=== PATIENT | female | born 1940 | race Caucasian/White ===

== ENCOUNTER 2017-12-12 10:44 | Emergency (ER) | payer OTHER, MEDICARE ==
[~2017-12-12] VITALS: Ht 154.9 cm; Wt 69.2 kg
[2017-12-12 10:49] VITALS: TEMP 36.7; Ht 154.9 cm; Wt 69.2 kg
[2017-12-12] MEDS ORDERED: LIDOCAINE 1% BUFFERED INJ 20 ML VIAL INFIL ONE (11:15)
--- NOTE | 2017-12-12 11:41 | EMERGENCY ROOM VISIT NOTE ---
History First contact with patient: 10:57 Chief Complaint: LACERATION/CUT (SUT/DERMABOND) Stated Complaint: LEFT MIDDLE FINGER CUT Nursing Triage Summary: triage note: pt reports she cut her left third and fourth fingers while cutting chicken breasts at approx 0500 today. History of Present Illness The patient is a 77 year old female who presents to the Emergency Room with complaints of a laceration to her left third and fourth fingertips while cutting chicken breast at approximately 5 AM this morning. The patient reports notable bleeding from the middle finger, and presents for further wound evaluation. Any significant pain. The patient is right-hand dominant. The patient is uncertain of her last tetanus immune is a chin. Review of Systems 6 system review was performed and was negative except for pertinent positives and negatives as indicated in history of present illness Past Medical/Surgical History Medical Problems: (1) Asthma (2) Hypercholesterolemia (3) Hypertension Nos (4) Kidney stones Surgical Problems: (1) History of dilatation and curettage (2) History of tubal ligation Family History FH: cancer FH: gallbladder disease FH: heart disease FH: hypertension FH: kidney disease FH: lung disease FH: multiple sclerosis FH: seizures Social History Smoking Status: Never Smoker Alcohol Use: occasionally Marital Status: Occupation Status: retired Physical Exam Vital Signs Date Time Temp Pulse Resp B/P (MAP) Pulse Ox O2 Delivery O2 Flow Rate FiO2 12/12/17 10:49 36.7 68 20 168/90 95 Room Air Physical Exam CONSTITUTIONAL: Healthy and well nourished. Patient does not appear in any acute distress. HEENT: Normocephalic, atraumatic. Pupils equal, round and reactive. NECK: Full active range of motion without discomfort. MUSCULOSKELETAL: Examination of the left third fingertip shows a 1 cm laceration with mild active bleeding. Nail plate is not involved. Patient has a superficial laceration to the tip of the fourth finger as well that will not require suture repair. INTEGUMENTARY: No rash or other significant dermatologic conditions noted. NEUROLOGIC: No focal neurologic deficits noted. Left third fingertip is sensory intact. Medical Decision & Procedures Procedure Laceration repair was performed under digital block anesthesia after receiving verbal consent from the patient. Using buffered 1% lidocaine without epinephrine, good digital block anesthesia was administered. The wound was then peripherally cleansed with iodine, then irrigated with normal saline. The wound was then approximated using 5-0 nylon simple interrupted sutures 3. A bacitracin dressing was applied. The patient was administered Adacel IM. ED Course Patient history and physical exam were performed. Nurse's notes were reviewed. Vital signs were reviewed and were normal. Laceration repair was performed under digital block anesthesia. The patient was provided additional verbal and written wound care instructions. Ice and elevation for swelling. Tylenol as needed for pain. Suture removal in 12-14 days, or seek reevaluation sooner for any signs of wound infection. The patient was happy with plan of care, voiced understanding of all discharge instructions, and denied any pain at the time of discharge. Case was also discussed with Dr. Beltrán, ED attending physician. Medical Decision Medication Reconcilliation Current Medication List: was personally reviewed by me Blood Pressure Screening Patient's blood pressure: Normal blood pressure Impression Primary Impression: Laceration of left middle finger Departure Information Dispostion Home / Self-Care Forms HOME CARE DOCUMENTATION FORM, IMPORTANT VISIT INFORMATION Patient Instructions My [facility] Additional Instructions Keep wound clean and dry. Do not allow any crusting or dried blood to accumulate on sutures. If this occurs, use a 1:1 solution of hydrogen peroxide/ water on a Q-tip to clean the wound. Use an antibiotic ointment for 3-4 days, then let wound dry. Suture removal in 12-14 days. Return sooner for any signs of infection (increasing redness, swelling, drainage). Ice and elevate as needed for swelling and pain. Tylenol 1000 mg every 6 hrs if needed for additional pain relief. Problem Qualifiers Primary Impression: Laceration of left middle finger Encounter type: initial encounter Damage to nail status: without damage Foreign body presence: without foreign body Qualified Codes: S61.213A - Laceration without foreign body of left middle finger without damage to nail, initial encounter
[2017-12-12] MEDS ORDERED: DIPHTHERIA/TETANUS/PERTUSSIS 0.5 ML SYR/VIAL IM. ONE (11:45)
[2017-12-12 11:55] VITALS: BP 152/82; PULSE 62; O2SAT 97
== END 2017-12-12 11:55 | disposition home or self-care (01) ==
LOC: C.EDB 10:45 → C.EDD 11:55
DX: S61.213A Laceration without foreign body of left middle finger without damage to nail, initial encounter (principal); S60.945A Unspecified superficial injury of left ring finger, initial encounter; Z23 Encounter for immunization; W45.8XXA Other foreign body or object entering through skin, initial encounter; Y93.G1 Activity, food preparation and clean up

== ENCOUNTER 2022-03-23 17:57 | Inpatient (IN) ==
[2022-03-23] MEDS ORDERED: ONDANSETRON INJ 2 MG/ML 2 ML VIAL IV STA (18:43)
[2022-03-23] MEDS ORDERED: SODIUM CHLORIDE 0.9% 1000ML 1,000 ML IV SCH (18:45)
--- NOTE | 2022-03-23 19:11 | Emergency Department Note ---
Impression & Plan Pancreatitis, Nausea & vomiting, Transaminitis ED Provider Note NAME: JERONIMO SAPP AGE: 81 SEX: F : 1940 ARRIVES VIA: Walk-In INFORMANT: Patient, ED PROVIDER(S): Memo Siu MD Chief Complaint: Vomiting HPI: Patient presents primarily due to concern for nausea and vomiting which began earlier this morning. The patient states that she feels that she is can get better and then tries to eat or drink something and then she has an episode of vomiting. No blood in the vomit. Patient denies any chest pains but may feel little bit short of breath but thinks that this is related to her abdominal discomfort. Patient does have a history of allergies and thinks it may be related. Patient denies any leg swelling or calf pain. The patient does complain of mild diffuse abdominal discomfort but no pain. No falls or trauma. The patient did have a bowel movement the last 24 hours. No blood in urine or stool. No dysuria. Patient did take some Tylenol earlier today. This mildly improved some of her symptoms. The patient denies any upper respiratory symptoms cough or fever. Patient denies any known sick contacts or recent travel. ROS: See HPI for pertinent positives and negatives. A total of 10 systems were reviewed and otherwise negative. Past medical history: See below Surgical history: See below Social history: See below Physical Exam: GENERAL: NAD, wearing a mask, non-toxic. EYE EXAM: Normal conjunctiva. PERRL, no anisocoria and EOM's grossly intact w/o pain. NECK: Supple, no nuchal rigidity, no adenopathy, non-tender. No signs of meningismus. FROM of the neck with good chin to chest and neck extension. No stridor. LUNGS: Clear to auscultation. Normal chest wall mechanics. HEART: NSR, no MRG. ABDOMEN: Abdomen soft, mild epigastric and left upper quadrant discomfort, no lower abdominal pain, normo-active bowel sounds, no masses, no rebound or guarding. BACK: No CVA TTP. SKIN: No rashes and no bruising. UPPER EXTREMITIES: Upper extremities are grossly normal. LOWER EXTREMITIES: Grossly normal, no edema. NEURO EXAM: A&O x3, cranial nerves II-XII grossly intact, normal speech, moves all 4 extremities. Differential diagnoses: Gastroenteritis, food borne illness, infections, appendicitis, diverticulitis, inflammatory bowel disease, obstruction, GI bleed, biliary pathology, volvulus, as well as other pathologies. Course: Patient was seen and evaluated the bedside. Full history physical exam was performed. EKG interpreted by me Normal sinus rhythm, rate of 71, normal axis, no ST elevations. No prior EKGs for comparison. Being machine read as accelerated junctional rhythm but believe the patient does have P waves seen in her anterior and lateral leads. Imaging Studies: See Below Cardiac monitoring: An order was placed for continuous cardiac monitoring. The monitor shows a rate of 77 with sinus rhythm. MDM: Patient presents due to concern for nausea vomiting and mild diffuse abdominal discomfort. Blood work is obtained along with an EKG troponin and the patient was ordered IV fluids and antiemetics The patient does not have any further nausea or vomiting and states that she feels quite well. The patient's blood work shows A white count of 12 with a normal H&H and platelet count. The patient's kidney function is unremarkable. The patient's LFTs did show concern for transaminitis and associated pancreatitis. The patient has no right upper quadrant pain. I did order a CT of the abdomen pelvis and discuss given her lab abnormalities and associated pancreatitis with the nausea and vomiting the patient would benefit from admi ssion. I did speak the on-call hospitalist Dr. Gonzales who and the patient was admitted to the medicine service pending CAT scan of the abdomen and pelvis. Patient has had no further vomiting since treatment and has no right upper quadrant pain at this time. Past Med/Surg History Medical History Acute acalculous cholecystitis Surgical History History of dilatation and curettage History of tubal ligation Social History Smoking Status: Never smoker Hx Alcohol Use: No Hx Substance Use: No Preferred Language: Welsh Communication Ability: Effective [employer] Marketing Analyst Required: No Beliefs That Will Affect Care: None marital status: / Current Living Situation: Alone Other Information That Helps Us Care for You: No Feels Safe at Home: Yes Safety Concerns: Feels Safe At This Time Assistive Devices: None Assistive Devices Comment: reading glasses Allergies Allergies Allergy/AdvReac Type Severity Reaction Status Date / Time adhesive Allergy Intermediate RASH Verified 03/23/22 19:35 alendronate sodium AdvReac Intermediate UPSET Verified 03/23/22 19:35 STOMACH AND JAW PAIN Home Meds Home Medications Medication Instructions Recorded Confirmed albuterol sulfate 90 mcg/actuation 2 puff inhalation DIRECTED PRN 03/23/22 03/23/22 aerosol inhaler Shortness Of Breath Or Wheezing aspirin 81 mg tablet,delayed 81 mg PO DAILY 03/23/22 03/23/22 release biotin 10,000 mcg capsule 10,000 mcg PO DAILY 03/23/22 03/23/22 euyqozk-xhtzkweau-fqya 333 mg-133 1 tab PO DAILY 03/23/22 03/23/22 mg-5 mg tablet cholecalciferol (vitamin D3) 25 25 mcg PO DAILY 03/23/22 03/23/22 mcg (1,000 unit) capsule (Vitamin D3) dextromethorphan-guaifenesin 30 1 tab PO Q12H 03/23/22 03/23/22 mg-600 mg tablet extended hr (Mucinex DM) glucosamine 125 mg-chondroitn 100 1 tab PO BID 03/23/22 03/23/22 mg-cartilg 40 mg-colagn 10 mg tablet hydrochlorothiazide 12.5 mg capsule 12.5 mg PO QAM 03/23/22 03/23/22 levothyroxine 125 mcg tablet 125 mcg PO QAM 03/23/22 03/23/22 lisinopril 10 mg tablet 10 mg PO HS 03/23/22 03/23/22 melatonin 10 mg tablet 20 mg PO HS PRN Sleep 03/23/22 03/23/22 montelukast 10 mg tablet 10 mg PO DAILY 03/23/22 03/23/22 multivit,mins no.24-iron ps 1 tab PO DAILY 03/23/22 03/23/22 complex 60 mg iron-folic acid 1 mg tablet omeprazole 20 mg capsule,delayed 20 mg PO QAM 03/23/22 03/23/22 release psyllium seed (sugar) oral powder 1 tsp PO DAILY 03/23/22 03/23/22 (Metamucil (sugar) oral powder) simvastatin 40 mg tablet 40 mg PO HS 03/23/22 03/23/22 Results & Data (ED) Vital Signs Vital Signs - 24 hr 03/23/22 18:07 03/23/22 18:47 03/23/22 19:57 Temperature 36.8 C Temperature Source Temporal Artery Scan Pulse Rate 79 70 Pulse Rate [Left Finger] 79 Pulse Rate from SpO2 Sensor Pulse Rhythm Regular Pulse Rhythm [Left Finger] Regular Pulse Strength [Left Finger] Normal Respiratory Rate 18 20 20 Respiratory Effort / Characteristics Non-Labored Respiratory Depth Normal Respiratory Pattern Regular Blood Pressure 111/62 Blood Pressure [Left Arm] 138/77 Blood Pressure Mean 78 Blood Pressure Mean [Left Arm] 97 Blood Pressure Position [Left Arm] Lying Pulse Oximetry 96 96 94 Oxygen Delivery Method Room Air Room Air Room Air Sepsis Recent Fever Within 48 Hours No Sepsis New/Unexplained Change in Mental Status No Sepsis Action Taken by Nursing No Action Required 03/23/22 18:37 03/23/22 19:00 03/23/22 19:00 Temperature Temperature Source Pulse Rate 70 73 Pulse Rate [Left Finger] Pulse Rate from SpO2 Sensor 70 71 Pulse Rhythm Pulse Rhythm [Left Finger] Pulse Strength [Left Finger] Respiratory Rate 24 23 Respiratory Effort / Characteristics Respiratory Depth Respiratory Pattern Blood Pressure 124/73 Blood Pressure [Left Arm] Blood Pressure Mean 90 Blood Pressure Mean [Left Arm] Blood Pressure Position [Left Arm] Pulse Oximetry 95 95 Oxygen Delivery Method Sepsis Recent Fever Within 48 Hours Sepsis New/Unexplained Change in Mental Status Sepsis Action Taken by Nursing 03/23/22 19:30 03/23/22 19:30 03/23/22 20:00 Temperature Temperature Source Pulse Rate 80 Pulse Rate [Left Finger] Pulse Rate from SpO2 Sensor 80 Pulse Rhythm Pulse Rhythm [Left Finger] Pulse Strength [Left Finger] Respiratory Rate 19 Respiratory Effort / Characteristics Respiratory Depth Respiratory Pattern Blood Pressure 141/59 H 160/80 H Blood Pressure [Left Arm] Blood Pressure Mean 86 106 Blood Pressure Mean [Left Arm] Blood Pressure Position [Left Arm] Pulse Oximetry 98 Oxygen Delivery Method Sepsis Recent Fever Within 48 Hours Sepsis New/Unexplained Change in Mental Status Sepsis Action Taken by Nursing 03/23/22 20:00 03/23/22 20:42 03/23/22 20:42 Temperature Temperature Source Pulse Rate 81 79 Pulse Rate [Left Finger] Pulse Rate from SpO2 Sensor 79 Pulse Rhythm Pulse Rhythm [Left Finger] Pulse Strength [Left Finger] Respiratory Rate 24 34 H Respiratory Effort / Characteristics Respiratory Depth Respiratory Pattern Blood Pressure 146/68 H Blood Pressure [Left Arm] Blood Pressure Mean 94 Blood Pressure Mean [Left Arm] Blood Pressure Position [Left Arm] Pulse Oximetry 98 Oxygen Delivery Method Sepsis Recent Fever Within 48 Hours Sepsis New/Unexplained Change in Mental Status Sepsis Action Taken by Nursing 03/23/22 21:00 03/23/22 21:00 03/23/22 21:30 Temperature Temperature Source Pulse Rate 77 76 Pulse Rate [Left Finger] Pulse Rate from SpO2 Sensor 75 76 Pulse Rhythm Pulse Rhythm [Left Finger] Pulse Strength [Left Finger] Respiratory Rate 24 26 H Respiratory Effort / Characteristics Respiratory Depth Respiratory Pattern Blood Pressure 138/77 Blood Pressure [Left Arm] Blood Pressure Mean 97 Blood Pressure Mean [Left Arm] Blood Pressure Position [Left Arm] Pulse Oximetry 93 97 Oxygen Delivery Method Sepsis Recent Fever Within 48 Hours Sepsis New/Unexplained Change in Mental Status Sepsis Action Taken by Nursing 03/23/22 21:31 03/23/22 21:31 Temperature Temperature Source Pulse Rate 79 Pulse Rate [Left Finger] Pulse Rate from SpO2 Sensor 81 Pulse Rhythm Pulse Rhythm [Left Finger] Pulse Strength [Left Finger] Respiratory Rate 19 Respiratory Effort / Characteristics Respiratory Depth Respiratory Pattern Blood Pressure 144/95 H Blood Pressure [Left Arm] Blood Pressure Mean 111 Blood Pressure Mean [Left Arm] Blood Pressure Position [Left Arm] Pulse Oximetry 98 Oxygen Delivery Method Sepsis Recent Fever Within 48 Hours Sepsis New/Unexplained Change in Mental Status Sepsis Action Taken by Residential Medications Current Medication List: was personally reviewed by me Laboratory Data Attestation: I reviewed the patient's lab results. Result diagrams: 03/24/22 05:52 03/24/22 05:52 Lab Results 03/23/22 03/23/22 Range/Units 18:57 18:57 WBC 12.58 H (4.8-10.8) K/ul RBC 4.63 (3.93-5.22) M/uL Hgb 14.7 (12.0-16.0) g/dl Hct 43.1 (34.1-44.9) % MCV 93.1 (80.0-100.0) fL MCH 31.7 (25.0-34.0) pg MCHC 34.1 (32.0-36.0) g/dL RDW Std Deviation 42.5 (36.4-46.3) fL RDW Coeff of Mio 12.3 (11.5-14.5) % Plt Count 225 (130-400) K/uL MPV 10.3 (9.4-12.3) fL Immature Gran % (Auto) 0.4 % Neut % (Auto) 86.1 % Lymph % (Auto) 7.6 % [place] % (Auto) 5.4 % Eos % (Auto) 0.3 % Baso % (Auto) 0.2 % Neut # (Auto) 10.84 H (1.4-6.5) K/uL Lymph # (Auto) 0.95 L (1.2-3.4) K/uL [place] # (Auto) 0.68 (0.24-0.82) K/uL Eos # (Auto) 0.04 (0-0.50) K/uL Baso # (Auto) 0.02 (0-0.2) K/uL Immature Gran # (Auto) 0.05 H (0.00-0.02) K/uL Sodium 136 (136-145) mmol/L Potassium 3.6 (3.5-5.1) mmol/L Chloride 101 (98-107) mmol/L Carbon Dioxide 26 (21-32) mmol/L Anion Gap 9 (3-11) BUN 18 (6-23) mg/dl Creatinine 0.83 (0.6-1.2) mg/dl Est Cr Clr Drug Dosing 48.5 ml/min Est GFR ( Amer) 77.7 ml/min Est GFR (Non-Af Amer) 67.1 ml/min BUN/Creatinine Ratio 21.7 H (10-20) Glucose 126 H (70-99(Fasting)) mg/dl Calcium 8.9 (8.5-10.1) mg/dl Total Bilirubin 1.4 H (0.2-1.0) mg/dl AST 737 H (13-39) U/L ALT 546 H (7-52) U/L Alkaline Phosphatase 200 H (34-104) U/L Troponin I High Sens 8.5 (0-14) pg/ml Total Protein 6.9 (6.0-8.3) gm/dl Albumin 4.1 (3.4-5.0) gm/dl Globulin 2.8 (2.5-4.0) gm/dl Albumin/Globulin Ratio 1.5 (0.9-2) Lipase 8900 H (11-82) U/L Administered Medications Aspirin (Aspirin 81 Mg Ectab) 81 mg PO DAILY DESIRAE Stop: 04/23/22 08:59 Last Admin: 03/24/22 13:09 Dose: Not Given Documented By: ACP Enoxaparin Sodium (Enoxaparin Inj 40 Mg/0.4 Ml Syr) 40 mg SQ HS DESIRAE Stop: 04/22/22 23:29 Last Admin: 03/24/22 00:17 Dose: 40 mg Documented By: MEG Hydromorphone HCl (Hydromorphone Inj 0.5 Mg/0.5 Ml Syr) 0.25 - 0.5 mg IV Q4H PRN PRN Reason: Pain Stop: 04/06/22 23:02 Last Admin: 03/24/22 13:55 Dose: 0.25 mg Documented By: RISA Lactated Ringer's (Lr) 1,000 mls @ 100 mls/hr IV .Q10H DESIRAE Stop: 04/22/22 23:02 Last Admin: 03/24/22 04:37 Dose: 200 mls/hr Documented By: Infusion: 03/24/22 04:11 Dose: 200 mls/hr Documented By: Admin: 03/23/22 23:11 Dose: 200 mls/hr Documented By: MEG Piperacillin Sod/Tazobactam (Sod 3.375 gm/ Dextrose) 115 mls @ 28.75 mls/hr IV Q8H DESIRAE; Protocol Stop: 04/03/22 05:59 Last Admin: 03/24/22 13:56 Dose: 28.8 mls/hr Documented By: Infusion: 03/24/22 13:10 Dose: 0 mls/hr Documented By: Admin: 03/24/22 06:06 Dose: 28.8 mls/hr Documented By: MEG Levothyroxine Sodium (Levothyroxine Sodium 125 Mcg Tablet) 125 mcg PO DAILYBB DESIRAE Stop: 04/23/22 06:29 Last Admin: 03/24/22 06:08 Dose: 125 mcg Documented By: MEG Montelukast Sodium (Montelukast Sodium 10 Mg Tablet) 10 mg PO DAILY DESIRAE Stop: 04/23/22 08:59 Last Admin: 03/24/22 13:09 Dose: Not Given Documented By: RISA Multivitamins/Minerals (Cerovite Adv Formula Tab) 1 tab PO DAILY DESIRAE Stop: 04/23/22 08:59 Last Admin: 03/24/22 13:09 Dose: Not Given Documented By: RISA Ondansetron HCl (Ondansetron Inj 2 Mg/Ml 2 Ml Vial) 4 mg IV Q6H PRN PRN Reason: Nausea Stop: 04/22/22 23:02 Last Admin: 03/24/22 08:46 Dose: 4 mg Documented By: RISA Pantoprazole Sodium (Pantoprazole 40 Mg Tab) 40 mg PO QAM DESIRAE Stop: 04/23/22 08:59 Last Admin: 03/24/22 13:09 Dose: Not Given Documented By: RISA Vitamin D (Cholecalciferol 1,000 Units 25 Mcg Tab) 1,000 units PO DAILY DESIRAE Stop: 04/23/22 08:59 Last Admin: 03/24/22 13:09 Dose: Not Given Documented By: RISA Discontinued Medications Hydromorphone HCl (Hydromorphone Inj 0.5 Mg/0.5 Ml Syr) 0.5 mg IV Q4H PRN PRN Reason: Pain Stop: 04/06/22 23:02 Last Admin: 03/24/22 06:09 Dose: 0.5 mg Documented By: MEG Sodium Chloride (Nss 1000ml) 1,000 mls @ 999 mls/hr IV .Q1H1M DESIRAE Stop: 03/23/22 19:45 Last Infusion: 03/23/22 20:59 Dose: 0 mls/hr Documented By: Admin: 03/23/22 19:02 Dose: 999 mls/hr Documented By: TIERNEY Sodium Chloride (Nss 1000ml) 500 mls @ 999 mls/hr IV .Q31M ONE Stop: 03/23/22 20:11 Last Infusion: 03/23/22 21:28 Dose: 0 mls/hr Documented By: Admin: 03/23/22 20:59 Dose: 999 mls/hr Documented By: TIERNEY Sodium Chloride (Nss) 500 mls @ 125 mls/hr IV .Q4H DESIRAE Stop: 04/22/22 20:29 Last Infusion: 03/24/22 00:51 Dose: 0 mls/hr Documented By: Admin: 03/23/22 21:29 Dose: 125 mls/hr Documented By: TIERNEY Piperacillin Sod/Tazobactam (Sod 4.5 gm/ Dextrose) 120 mls @ 200 mls/hr IV NOW ONE; Protocol Stop: 03/23/22 23:50 Last Infusion: 03/24/22 00:50 Dose: 0 mls/hr Documented By: Admin: 03/24/22 00:13 Dose: 200 mls/hr Documented By: MEG Ioversol (Optiray 350 100ml) 99 ml IV ONCE ONE Stop: 03/23/22 20:45 Last Admin: 03/23/22 20:44 Dose: 99 ml Documented By: ELMA Ketorolac Tromethamine (Ketorolac Tromethamine 15 Mg/Ml Vial) 15 mg IV NOW ONE Stop: 03/23/22 23:53 Last Admin: 03/24/22 00:12 Dose: 15 mg Documented By: MEG Ondansetron HCl (Ondansetron Inj 2 Mg/Ml 2 Ml Vial) 4 mg IV NOW STA Stop: 03/23/22 18:44 Last Admin: 03/23/22 19:03 Dose: 4 mg Documented By: TIERNEY Imaging Data Radiologist's Impression: Abdomen/Pelvis CT 03/23/22 20:08 CT abd pelvis IV con only CLINICAL HISTORY: pancreatitis TECHNIQUE: Helical axial images of the abdomen and pelvis were obtained and displayed. Automated dose lowering techniques and/or adjustment according to patient size were utilized for this exam. This exam was performed with intravenous contrast. CT DOSE: 322.35 mGy.cm COMPARISON: Comparison is made to gallbladder ultrasound 03/24/2022 FINDINGS: Lower chest: Bibasilar atelectasis versus scarring is seen. Liver: Unremarkable. No focal lesions are seen. Gallbladder and biliary tree: The gallbladder wall thickening is seen with pericholecystic fluid. No intra- or extrahepatic biliary ductal dilation. Pancreas: Peripancreatic stranding is seen without focal fluid collection. Spleen: Unremarkable. Adrenals: Unremarkable. Kidneys and ureters: Subcentimeter hypodensities are too small to characterize. Bladder: Unremarkable. Reproductive organs: Unremarkable. Bowel: Diverticulosis is seen without evidence of diverticulitis. The appendix is normal. Lymph nodes Retroperitoneal: Unremarkable. Pelvic: Unremarkable. Mesenteric: Unremarkable. Peritoneum: Normal. Vessels: Atherosclerotic calcifications are seen. Abdominal wall: Unremarkable. Bones: Degenerative changes in the visualized spine. IMPRESSION: Gallbladder wall thickening and pericholecystic edema concerning for acute cholecystitis. Peripancreatic stranding is seen without focal fluid collections, which may represent acute pancreatitis. ACT 112: Negative or not required by law. Electronically signed by: Esdras Díaz M.D. 03/24/2022 8:53 AM Discharge Plan Visit Data Chief Complaint: Vomiting Stated Complaint: VOMITING ED Provider: Memo Siu Discharge Problem: Pancreatitis, Nausea & vomiting, Transaminitis Patient Disposition: Admitted As Inpatient Discharge Instructions Interventions: ED Discharge Assessment Last Done: 03/23/22 22:47
[2022-03-23 19:14] LABS: Basophils # (auto) 0.02 K/uL (0-0.2); Basophils % (auto) 0.2 %; Eosinophils # (auto) 0.04 K/uL (0-0.50); Eosinophils % (auto) 0.3 %; Hematocrit (blood only) 43.1 % (34.1-44.9); Hemoglobin 14.7 g/dl (12.0-16.0); Immature Granulocytes # (auto) 0.05 K/uL (0.00-0.02); Immature Granulocytes % (auto) 0.4 %; Lymphocytes # (auto) 0.95 K/uL (1.2-3.4); Lymphocytes % (auto) 7.6 %; Mean Corpuscular Hemoglobin 31.7 pg (25.0-34.0); Mean Corpuscular Hgb Conc 34.1 g/dL (32.0-36.0); Mean Corpuscular Volume 93.1 fL (80.0-100.0); Mean Platelet Volume 10.3 fL (9.4-12.3); Monocytes # (auto) 0.68 K/uL (0.24-0.82); Monocytes % (auto) 5.4 %; Neutrophils # (auto) 10.84 K/uL (1.4-6.5); Neutrophils % (auto) 86.1 %; Platelet Count 225 K/uL (130-400); RDW Coefficient of Variation 12.3 % (11.5-14.5); RDW Standard Deviation 42.5 fL (36.4-46.3); Red Blood Count 4.63 M/uL (3.93-5.22); White Blood Count 12.58 K/ul (4.8-10.8)
[2022-03-23 19:40] LABS: BUN Creatinine Ratio 21.7 (10-20); Calcium 8.9 mg/dl (8.5-10.1); Creatinine Clr Calc Pharmacy 48.5 ml/min; Est GFR (African American) 77.7 ml/min; Est GFR (Non-African American) 67.1 ml/min; Potassium 3.6 mmol/L (3.5-5.1)
[2022-03-23] MEDS ORDERED: SODIUM CHLORIDE 0.9% 1000ML 500 ML IV ONE (19:41)
[2022-03-23 19:44] LABS: Troponin I High Sensitivity 8.5 pg/ml (0-14)
[2022-03-23 19:55] LABS: Albumin Globulin Ratio 1.5 (0.9-2); Albumin Level 4.1 gm/dl (3.4-5.0); Bilirubin,Total 1.4 mg/dl (0.2-1.0); Globulin 2.8 gm/dl (2.5-4.0); Total Protein 6.9 gm/dl (6.0-8.3)
[2022-03-23] MEDS ORDERED: SODIUM CHLORIDE 0.9% 500 ML IV SCH (20:30)
[2022-03-23] MEDS ORDERED: OPTIRAY 350 100ml IV ONE (20:44)
--- NOTE | 2022-03-23 22:26 | History and Physical Report ---
DATE OF ADMISSION: 03/23/2022. CHIEF COMPLAINT: Nausea, vomiting, abdominal discomfort. HISTORY OF PRESENT ILLNESS: A 81-year-old female with past medical history significant for hypothyroidism, prediabetes, intermittent asthma, mixed rhinitis, osteoporosis, migraine, who presents with nausea, vomiting, abdominal pain and since last night she is having persistent nausea, vomiting, it is not getting better, and also abdominal discomfort, which prompted her to come to the ER. She had four bowel movements, first stool was somewhat constipated, but her last stool was normal. Denies any blood in stools. Normal bladder movements. Currently resting comfortably. After Zofran, nausea is better. Denies any chest pain, no shortness of breath. Occasionally, has cough, no fevers, no difficulty swallowing. No earache, no runny nose, no sore throat, has some headache, no neck pain, no back pain. ALLERGIES: ADHESIVES, ALENDRONATE SODIUM. PAST MEDICAL HISTORY: As mentioned above. PAST SURGICAL HISTORY: Breast biopsy, colonoscopies, dilatation and curettage, ligation of oviducts, sigmoidoscopy with biopsy. MEDICATIONS: The patient is on albuterol 2 puffs inhalation p.r.n., aspirin 81 mg p.o. daily, biotin 10,000 mcg p.o. daily, vitamin D 25 mcg p.o. daily, calcium, magnesium, zinc 1 tablet p.o. daily, glucosamine chondroitin 1 tablet p.o. b.i.d., hydrochlorothiazide 12.5 mg p.o. a.m., levothyroxine 125 mcg p.o. daily, lisinopril 10 mg p.o. daily, multivitamins 1 tablet p.o. daily, melatonin 20 mg p.o. at bedtime p.r.n., montelukast 10 mg p.o. daily, omeprazole 20 mg p.o. daily, Metamucil 1 tablespoon p.o. daily, simvastatin 40 mg p.o. at bedtime. FAMILY HISTORY: Significant for father has chronic rhinitis, heart disorder, lung disorder; sister has allergies, MS; mother has stroke, heart disorder, cancers. SOCIAL HISTORY: , quit smoking in 1969, smoked half pack a day for 12 years. Drinks alcohol, no drug use. REVIEW OF SYSTEMS: As per HPI. Rest of the review of systems is negative. PHYSICAL EXAMINATION: GENERAL: The patient is of moderate build, not in acute distress. VITAL SIGNS: Temperature 36.8, pulse 79, respiratory rate 20, blood pressure 113/77, oxygen 94% on room air. HEENT: Pupils equal, round, and reactive to light. Oral mucosa moist. NECK: No JVD, no neck masses. CARDIOVASCULAR: S1 and S2 heard. Regular rate and rhythm. No murmur, no gallop. RESPIRATORY SYSTEM: Normal AP diameter. No accessory muscle use. No wheezing, no crackles. ABDOMEN: Soft, bowel sounds sluggish. Mild discomfort. No guarding, no rigidity, no distention. CENTRAL NERVOUS SYSTEM: Cranial nerves II-XII grossly intact, nonfocal. EXTREMITIES: No edema, no erythema. LABORATORY DATA: WBC 12.5, hemoglobin 14.7, hematocrit 43.1, platelets 225. Sodium 136, potassium 3.6, chloride 101, bicarbonate 26, BUN 18, creatinine 0.8, serum glucose 126, calcium 8.9, total bilirubin 1.4, AST 737, ALT 546, alkaline phosphatase 200. Troponin I high sensitivity 8.5. Lipase 8900. SARS-CoV-2 rapid test negative. IMAGING DATA: CT of the abdomen and pelvis, results are pending. EKG: Accelerated junctional rhythm at a rate of 71, nonspecific T-wave abnormalities. ASSESSMENT AND PLAN: This is a 81-year-old female who presents with abdominal pain, nausea, vomiting and found to have pancreatitis. 1. Abdominal pain, nausea, vomiting, most likely pancreatitis, Lipase 8900. Awaiting CAT scan results. Her LFTs are also elevated with total bilirubin of 1.4, AST 737, ALT 546, alkaline phosphatase 200. We also ordered liver ultrasound and hepatitis panel. Will keep her n.p.o., Aggressive fluids with Ringer's lactate at 200 mL per hour, IV Dilaudid p.r.n., IV antiemetics. N.p.o. Consult GI in the a.m. Follow the repeat labs. 2. History of hypertension: Hold hydrochlorothiazide. Continue lisinopril. Will monitor the blood pressure. 3. History of prediabetes: Follow HbA1c levels. Currently n.p.o. 4. History of hypothyroidism: Continue Synthroid. 5. History of asthma: Continue her home medication. Currently stable. 6. Hyperlipidemia: Holding the Statin as liver functions are elevated. 7. Deep venous thrombosis prophylaxis: Lovenox. DISPOSITION: Closely monitor in the medical floor. PT, OT prior to discharge. Social service to help with discharge planning. Job ID: [id number] RUBIO
[2022-03-23] MEDS ORDERED: NON-FORMULARY MEDICATION (Melatonin 10 mg Tablet) PO PRN (23:03)
[2022-03-23] MEDS ORDERED: ALBUTEROL HFA 8 GM INHALER INH PRN ×2 (23:03→23:24)
[2022-03-23] MEDS ORDERED: HYDROmorphone INJ 0.5 MG/0.5 ML SYR IV PRN (23:03)
[2022-03-23] MEDS ORDERED: POLYETHYLENE (MIRALAX) 17 GM PACK PO PRN (23:03)
[2022-03-23] MEDS: LACTATED RINGER'S 1,000 ML IV SCH (23:11)
[2022-03-23] MEDS ORDERED: PIPERACILLIN/TAZOBACTAM 4.5 GM in DEXTROSE 5% 100 ML IV ONE (23:15)
[2022-03-23] MEDS ORDERED: MELATONIN 3 MG TAB PO PRN (23:24)
[2022-03-23] MEDS ORDERED: KETOROLAC TROMETHAMINE 15 MG/ML VIAL IV ONE (23:52)
[2022-03-24] MEDS: ENOXAPARIN INJ 40 MG/0.4 ML SYR SQ SCH ×2 (00:17→21:29)
[2022-03-24] MEDS: LACTATED RINGER'S 1,000 ML IV SCH ×3 (04:37→20:02)
[2022-03-24] MEDS: PIPERACILLIN/TAZOBACTAM 3.375 GM in DEXTROSE 5% 100 ML IV SCH ×3 (06:06→21:34)
[2022-03-24] MEDS: LEVOTHYROXINE SODIUM 125 MCG TABLET PO SCH (06:08)
--- NOTE | 2022-03-24 06:36 | Ultrasound Report ---
ULTRASOUND RIGHT UPPER QUADRANT ABDOMEN CLINICAL HISTORY: Elevated hepatic transaminases. COMPARISON STUDY: Abdominal CT dated 03/23/2022. TECHNIQUE: Real-time, grayscale, and color flow sonography of the right upper quadrant of the abdomen was performed. Images are reviewed in the transverse and longitudinal planes. FINDINGS: Liver: The liver is normal in size and echotexture. There is no intrahepatic biliary ductal dilatatio n. The main portal vein is patent. Gallbladder: There are gallstones and biliary sludge. The gallbladder wall is thickened and appears e dematous measuring up to 5 mm. There is pericolic cystic fluid/edema. A sonographic Sweet's sign is reportedly absent. The common bile duct measures up to 0.4 cm in diameter. Pancreas: The pancreatic body and tail appear mildly edematous. Right kidney: Survey images of the right kidney demonstrate normal size and echotexture. There is no hydronephrosis. A subcentimeter cyst is noted in the interpolar region. Ascites: None. IMPRESSION: 1. Cholelithiasis and biliary sludge within a thick-walled and edematous appearing gallbladder. The a ppearance is highly suspicious for acute cholecystitis. 2. The pancreatic body and tail appeared edematous. This likely corresponds to acute pancreatitis whe n correlated with today's abdominal CT scan. Consider precautionary sonographic follow-up in 3-4 taran hs time to document resolution. 3. There is no intra or extrahepatic biliary ductal dilatation. ACT 112: Negative or not required by law. Electronically signed by: Jerson Ayala M.D. 03/24/2022 6:35 AM
[2022-03-24 06:47] LABS: Basophils # (auto) 0.03 K/uL (0-0.2); Basophils % (auto) 0.4 %; Eosinophils # (auto) 0.19 K/uL (0-0.50); Eosinophils % (auto) 2.4 %; Hematocrit (blood only) 38.4 % (34.1-44.9); Hemoglobin 13.2 g/dl (12.0-16.0); Immature Granulocytes # (auto) 0.04 K/uL (0.00-0.02); Immature Granulocytes % (auto) 0.5 %; Lymphocytes # (auto) 2.26 K/uL (1.2-3.4); Lymphocytes % (auto) 28.8 %; Mean Corpuscular Hemoglobin 32.1 pg (25.0-34.0); Mean Corpuscular Hgb Conc 34.4 g/dL (32.0-36.0); Mean Corpuscular Volume 93.4 fL (80.0-100.0); Mean Platelet Volume 10.6 fL (9.4-12.3); Monocytes % (auto) 6.4 %; Neutrophils # (auto) 4.83 K/uL (1.4-6.5); Neutrophils % (auto) 61.5 %; Platelet Count 198 K/uL (130-400); RDW Coefficient of Variation 12.1 % (11.5-14.5); RDW Standard Deviation 41.6 fL (36.4-46.3); Red Blood Count 4.11 M/uL (3.93-5.22); White Blood Count 7.85 K/ul (4.8-10.8)
[2022-03-24 07:16] LABS: BUN Creatinine Ratio 17.6 (10-20); Calcium 8.4 mg/dl (8.5-10.1); Est GFR (African American) 89.3 ml/min; Est GFR (Non-African American) 77.1 ml/min; Potassium 3.4 mmol/L (3.5-5.1)
[2022-03-24 07:35] LABS: Albumin Level 3.5 gm/dl (3.4-5.0); Bilirubin Direct 0.2 mg/dl (0-0.2); Bilirubin,Total 1.3 mg/dl (0.2-1.0); Total Protein 5.8 gm/dl (6.0-8.3)
[2022-03-24] MEDS: ONDANSETRON INJ 2 MG/ML 2 ML VIAL IV PRN ×2 (08:46→19:57)
--- NOTE | 2022-03-24 08:55 | CT Scan Report ---
CT abd pelvis IV con only CLINICAL HISTORY: pancreatitis TECHNIQUE: Helical axial images of the abdomen and pelvis were obtained and displayed. Automated dose lowering techniques and/or adjustment according to patient size were utilized for this exam. This e xam was performed with intravenous contrast. CT DOSE: 322.35 mGy.cm COMPARISON: Comparison is made to gallbladder ultrasound 03/24/2022 FINDINGS: Lower chest: Bibasilar atelectasis versus scarring is seen. Liver: Unremarkable. No focal lesions are seen. Gallbladder and biliary tree: The gallbladder wall thickening is seen with pericholecystic fluid. No intra- or extrahepatic biliary ductal dilation. Pancreas: Peripancreatic stranding is seen without focal fluid collection. Spleen: Unremarkable. Adrenals: Unremarkable. Kidneys and ureters: Subcentimeter hypodensities are too small to characterize. Bladder: Unremarkable. Reproductive organs: Unremarkable. Bowel: Diverticulosis is seen without evidence of diverticulitis. The appendix is normal. Lymph nodes Retroperitoneal: Unremarkable. Pelvic: Unremarkable. Mesenteric: Unremarkable. Peritoneum: Normal. Vessels: Atherosclerotic calcifications are seen. Abdominal wall: Unremarkable. Bones: Degenerative changes in the visualized spine. IMPRESSION: Gallbladder wall thickening and pericholecystic edema concerning for acute cholecystitis. Peripancrea tic stranding is seen without focal fluid collections, which may represent acute pancreatitis. ACT 112: Negative or not required by law. Electronically signed by: Esdras Díaz M.D. 03/24/2022 8:53 AM
[2022-03-24] MEDS ORDERED: NON-FORMULARY MEDICATION (Calcium-Magnesium-Zinc 333-133-5 mg Tablet) PO SCH (09:00)
--- NOTE | 2022-03-24 09:57 | Surgery Consultation ---
Date of Consultation March 24, 2022 Assessment & Plan (1) Acute acalculous cholecystitis: IVF and IV abx to OR in AM for lap milton possible IOC medical clearance per medical team Present on Admission?: Yes (2) Elevated liver enzymes: would consult GI to see if ERCP indicated, can perform during lap milton if needed in AM Present on Admission?: Yes History of Present Illness Attending Physician: Ady Ryan MD History of Present Illness This is a 81-year-old female with past medical history significant for hypothyroidism, prediabetes, intermittent asthma, mixed rhinitis, osteoporosis, migraines who presented to ED with nausea, vomiting, abdominal pain and since last night. She did not relate any exposures or questionable food ingestions. She has had some recent frequent stools, without any blood in stools. Normal bladder movements.An ultrasound is consistent with acute cholecystitis with elevated LFTs. Allergies Allergy/AdvReac Type Severity Reaction Status Date / Time adhesive Allergy Intermediate RASH Verified 03/23/22 19:35 alendronate sodium AdvReac Intermediate UPSET Verified 03/23/22 19:35 STOMACH AND JAW PAIN Home Medications Medication Instructions Recorded Confirmed Type albuterol sulfate 90 mcg/actuation 2 puff inhalation DIRECTED PRN 03/23/22 03/23/22 History aerosol inhaler Shortness Of Breath Or Wheezing aspirin 81 mg tablet,delayed 81 mg PO DAILY 03/23/22 03/23/22 History release biotin 10,000 mcg capsule 10,000 mcg PO DAILY 03/23/22 03/23/22 History pwrhuvl-dtvpymrwk-ljfh 333 mg-133 1 tab PO DAILY 03/23/22 03/23/22 History mg-5 mg tablet cholecalciferol (vitamin D3) 25 25 mcg PO DAILY 03/23/22 03/23/22 History mcg (1,000 unit) capsule (Vitamin D3) dextromethorphan-guaifenesin 30 1 tab PO Q12H 03/23/22 03/23/22 History mg-600 mg tablet extended [id number] hr (Mucinex DM) glucosamine 125 mg-chondroitn 100 1 tab PO BID 03/23/22 03/23/22 History mg-cartilg 40 mg-colagn 10 mg tablet hydrochlorothiazide 12.5 mg capsule 12.5 mg PO QAM 03/23/22 03/23/22 History levothyroxine 125 mcg tablet 125 mcg PO QAM 03/23/22 03/23/22 History lisinopril 10 mg tablet 10 mg PO HS 03/23/22 03/23/22 History melatonin 10 mg tablet 20 mg PO HS PRN Sleep 03/23/22 03/23/22 History montelukast 10 mg tablet 10 mg PO DAILY 03/23/22 03/23/22 History multivit,mins no.24-iron ps 1 tab PO DAILY 03/23/22 03/23/22 History complex 60 mg iron-folic acid 1 mg tablet omeprazole 20 mg capsule,delayed 20 mg PO QAM 03/23/22 03/23/22 History release psyllium seed (sugar) oral powder 1 tsp PO DAILY 03/23/22 03/23/22 History (Metamucil (sugar) oral powder) simvastatin 40 mg tablet 40 mg PO HS 03/23/22 03/23/22 History Patient History Medical History (Updated 03/24/22 @ 09:59 by Luis Alston MD) Acute acalculous cholecystitis Social History Smoking Status: Never smoker Hx Alcohol Use: No Hx Substance Use: No Preferred Language: Maldivian Communication Ability: Effective Thread Twister Required: No Beliefs That Will Affect Care: None marital status: / Current Living Situation: Alone Other Information That Helps Us Care for You: No Feels Safe at Home: Yes Safety Concerns: Feels Safe At This Time Assistive Devices: None Assistive Devices Comment: reading glasses Review of Systems Constitutional: + anorexia; no fever and no chills Eyes: no problem reported Ear, Nose, Mouth, Throat: no problem reported Respiratory: no cough and no dyspnea Cardiovascular: no chest pain and no radiating jaw, neck or arm pain Gastrointestinal: + abdominal pain, + nausea, + vomiting and + change in bowel habits; no hematemesis and no blood in stools Genitourinary: no dysuria, no urinary hesitancy and no urinary urgency Musculoskeletal: + back pain; no neck pain and no joint pain Integumentary: no lesions Neurologic: no localized weakness and no generalized weakness Psychiatric: no behavioral changes Endocrine: no fatigue Hematologic / Lymphatic: no easy bleeding and no easy bruising Allergy / Immunological: no GI upset with certain foods Physical Exam Constitutional: WD/WN, vitals as above Eyes: PERRL, conjunctivae normal, anicteric sclerae ENMT: external ear and nose normal, oropharynx normal Respiratory: normal respiratory effort, lungs clear to auscultation Cardiovascular: RRR, no murmur, no edema Gastrointestinal (Abdomen): Inspection/Auscultation: abdomen normal to inspection, normal bowel sounds and + abdominal surgical scar; abdomen not distended and no visible herniation Percussion/Palpation: + abdomen tender and abdomen soft; no guarding and abdomen not rigid Musculoskeletal: Head/Neck/Chest: normocephalic and head atraumatic Skin: no rashes, warm and dry Psychiatric: Orientation: alert and oriented x 3 Results & Data ([facility]) Vital Signs (Past 12 Hours) Vital Signs Temp Pulse Resp BP Pulse Ox O2 Del Method 03/24/22 07:23 36.2 C L 63 18 121/64 95 Room Air 03/23/22 22:45 36.9 C 81 18 149/75 H 96 Room Air Diagnostic Findings ULTRASOUND RIGHT UPPER QUADRANT ABDOMEN CLINICAL HISTORY: Elevated hepatic transaminases. COMPARISON STUDY: Abdominal CT dated 03/23/2022. TECHNIQUE: Real-time, grayscale, and color flow sonography of the right upper quadrant of the abdomen was performed. Images are reviewed in the transverse and longitudinal planes. FINDINGS: Liver: The liver is normal in size and echotexture. There is no intrahepatic biliary ductal dilatation. The main portal vein is patent. Gallbladder: There are gallstones and biliary sludge. The gallbladder wall is thickened and appears edematous measuring up to 5 mm. There is pericolic cystic fluid/edema. A sonographic Sweet's sign is reportedly absent. The common bile duct measures up to 0.4 cm in diameter. Pancreas: The pancreatic body and tail appear mildly edematous. Right kidney: Survey images of the right kidney demonstrate normal size and echotexture. There is no hydronephrosis. A subcentimeter cyst is noted in the interpolar region. Ascites: None. IMPRESSION: 1. Cholelithiasis and biliary sludge within a thick-walled and edematous appearing gallbladder. The appearance is highly suspicious for acute cholecystitis. 2. The pancreatic body and tail appeared edematous. This likely corresponds to acute pancreatitis when correlated with today's abdominal CT scan. Consider precautionary sonographic follow-up in 3-4 months time to document resolution. 3. There is no intra or extrahepatic biliary ductal dilatation.
[2022-03-24] MEDS ORDERED: ceFAZolin 2000MG 2,000 MG/15 ML SYR IV ONE (11:01)
--- NOTE | 2022-03-24 11:36 | Gastrointestinal Consultation ---
Date of Consultation March 24, 2022 Assessment & Plan (1) Acute acalculous cholecystitis: (2) Elevated liver enzymes: (3) Pancreatitis: Patient is a 81 years old female who presented with diffuse abdominal pain, nausea and vomiting symptoms, work-up pertinent for elevated LFTs and lipase, abdominal imaging studies concerning for cholecystitis with stones and sludge within the gallbladder, pancreatitis within the tail area. - LR IVF support -IV antibiotic coverage - NPO - Surgery following, scheduling pt for cholecystectomy on 03/25. Recommend intraop cholangiogram during surgery - Trend LFTs - Recommend to avoid ETOH - GI to sign off; pls recall prn History of Present Illness Reason for Consultation: Pancreatitis, elevated LFTs Requesting Physician: Dr. Ady Ryan Attending Physician: Dr. Karen Pate History of Present Illness Patient is a 81 years old female with past medical history is listed as below who presented last night with complaints of diffuse abdominal pain, nausea and vomiting for about 2 days now. She complained that she was also mildly constipa chaim but last bowel movement was normal. Denies any hematemesis or coffee-ground emesis, dark tarry stools or rectal bleeding. Her evaluation is pertinent for elevated LFTs: Total bilirubin 1.3, AST 252, ALT 360, alkaline phosphatase 153, lipase initially 8900, today is down to 805. Abdominal imaging studies with gallbladder ultrasound and CT of the abdomen and pelvis showed signs of cholecystitis with gallbladder stones and sludge, also pancreatic tail inflammation concerning for pancreatitis. Patient denies any new medications, herbal supplements. She denies any tobacco uses, she started drinking about 2 ounces of red wine daily for the past 3 days for health reasons. Sister with history of MS, denies any pancreatic disease or autoimmune diseases/ca in the pancreas otherwise. Allergies Allergy/AdvReac Type Severity Reaction Status Date / Time adhesive Allergy Intermediate RASH Verified 03/23/22 19:35 alendronate sodium AdvReac Intermediate UPSET Verified 03/23/22 19:35 STOMACH AND JAW PAIN Home Medications Medication Instructions Recorded Confirmed Type albuterol sulfate 90 mcg/actuation 2 puff inhalation DIRECTED PRN 03/23/22 03/23/22 History aerosol inhaler Shortness Of Breath Or Wheezing aspirin 81 mg tablet,delayed 81 mg PO DAILY 03/23/22 03/23/22 History release biotin 10,000 mcg capsule 10,000 mcg PO DAILY 03/23/22 03/23/22 History pvjojxn-lqdicandh-enhq 333 mg-133 1 tab PO DAILY 03/23/22 03/23/22 History mg-5 mg tablet cholecalciferol (vitamin D3) 25 25 mcg PO DAILY 03/23/22 03/23/22 History mcg (1,000 unit) capsule (Vitamin D3) dextromethorphan-guaifenesin 30 1 tab PO Q12H 03/23/22 03/23/22 History mg-600 mg tablet extended hr (Mucinex DM) glucosamine 125 mg-chondroitn 100 1 tab PO BID 03/23/22 03/23/22 History mg-cartilg 40 mg-colagn 10 mg tablet hydrochlorothiazide 12.5 mg capsule 12.5 mg PO QAM 03/23/22 03/23/22 History levothyroxine 125 mcg tablet 125 mcg PO QAM 03/23/22 03/23/22 History lisinopril 10 mg tablet 10 mg PO HS 03/23/22 03/23/22 History melatonin 10 mg tablet 20 mg PO HS PRN Sleep 03/23/22 03/23/22 History montelukast 10 mg tablet 10 mg PO DAILY 03/23/22 03/23/22 History multivit,mins no.24-iron ps 1 tab PO DAILY 03/23/22 03/23/22 History complex 60 mg iron-folic acid 1 mg tablet omeprazole 20 mg capsule,delayed 20 mg PO QAM 03/23/22 03/23/22 History release psyllium seed (sugar) oral powder 1 tsp PO DAILY 03/23/22 03/23/22 History (Metamucil (sugar) oral powder) simvastatin 40 mg tablet 40 mg PO HS 03/23/22 03/23/22 History Patient History Medical History (Updated 03/24/22 @ 11:33 by LIGIA Morrison) Acute acalculous cholecystitis Social History Smoking Status: Never smoker Hx Alcohol Use: No Hx Substance Use: No Preferred Language: Telugu Communication Ability: Effective Youth Care Professional Required: No Beliefs That Will Affect Care: None marital status: / Current Living Situation: Alone Other Information That Helps Us Care for You: No Feels Safe at Home: Yes Safety Concerns: Feels Safe At This Time Assistive Devices: None Assistive Devices Comment: reading glasses Review of Systems Review of Systems: All systems reviewed & are unremarkable except as noted in HPI & below Physical Exam Constitutional: WD/WN, vitals as above well groomed, cooperative and comfortable Eyes: PERRL, conjunctivae normal, anicteric sclerae ENMT: external ear and nose normal, oropharynx normal Respiratory: normal respiratory effort, lungs clear to auscultation Cardiovascular: RRR, no murmur, no edema Gastrointestinal (Abdomen): normal bowel sounds, soft, nontender, no hepatosplenomegaly Skin: no rashes, warm and dry no jaundice Psychiatric: A+Ox3, euthymic affect Lymphatic: no lymphedema Results & Data ([facility]) Vital Signs (Past 12 Hours) Vital Signs Temp Pulse Resp BP Pulse Ox O2 Del Method 03/24/22 07:23 36.2 C L 63 18 121/64 95 Room Air
[2022-03-24] MEDS ORDERED: HYDROmorphone INJ 0.5 MG/0.5 ML SYR IV PRN (13:04)
--- NOTE | 2022-03-24 13:08 | Hospitalist Progress Note ---
Date of Service March 24, 2022 Assessment & Plan (1) Acute calculous cholecystitis: (2) Pancreatitis: (3) Elevated liver enzymes: Plan: Patient is a 81-year-old female who presented with abdominal pain, nausea and vomiting. CT abdomen and pelvis shows cholelithiasis and findings consistent with pancreatitis Lipase 9800 LFTs elevated; slightly downtrending this morning. Liver ultrasound shows acute cholecystitis Pre-op Medical evaluation: Patient does not have any history of ischemic heart disease, CHF, cerebrovascular disease or other significant comorbid conditions. She denies chest pain or shortness of breath. She is independent of her ADLs. Her RCRI score is 0. She is at average risk to undergo laparoscopic cholecystectomy. At her current state, she is medically optimized to undergo the procedure. We will obtain baseline EKG. Plan; Continue on IV fluids with LR at 100 cc/h. Continue pain control with Dilaudid Continue on IV Zosyn. Patient to undergo laparoscopic cholecystectomy with possible IOC tomorrow a.m. by surgery. N.p.o. from midnight Plan Chronic conditions: History of hypertension: Hold hydrochlorothiazide. Continue lisinopril. Will monitor the blood pressure. History of prediabetes: Follow HbA1c levels. History of hypothyroidism: Continue Synthroid. History of asthma: Continue her home medication. Currently stable. Hyperlipidemia: Holding the Statin as liver functions are elevated. Deep venous thrombosis prophylaxis: Hold lovenox for surgery Admission and Anticipated Discharge Date Admission Date: March 23, 2022 Subjective Patient seen and examined at bedside. She reports that her abdominal pain is better compared to admission but continues to report nausea. Review of Systems Review of Systems: All systems reviewed & are unremarkable except as noted in Subjective Physical Exam Physical Exam: Constitutional: WD/WN, vitals as above, NAD, sitting up in bed, pleasant, conversing easily Respiratory: normal respiratory effort, lungs clear to auscultation, no wheeze, rales, rhonchi. Normal insp/exp effort, no accessory muscle use Cardiovascular: RRR, no murmur, no edema Vessels: no JVD or carotid bruit Chest: normal inspection of chest Abdomen: Soft, nontender. Musculoskeletal: no cyanosis or clubbing, extremities motor strength 5/5 Skin: no rashes, warm and dry normal turgor Neurologic: PERRL, EOMI, accommodation nl, no face palsy, no dysarthria CN's II- XI intact bilaterally and moves all extremities Psychiatric: A+Ox3, euthymic affect Lymphatic: no cervical or axillary lymphadenopathy : deferred Results & Data Results & Data ([facility]) Vital Signs (Past 12 Hours) Vital Signs Temp Pulse Resp BP Pulse Ox O2 Del Method 03/24/22 07:23 36.2 C L 63 18 121/64 95 Room Air Laboratory Results Laboratory Results WBC 7.85 K/ul (4.8-10.8) 03/24/22 05:52 RBC 4.11 M/uL (3.93-5.22) 03/24/22 05:52 Hgb 13.2 g/dl (12.0-16.0) 03/24/22 05:52 Hct 38.4 % (34.1-44.9) 03/24/22 05:52 MCV 93.4 fL (80.0-100.0) 03/24/22 05:52 MCH 32.1 pg (25.0-34.0) 03/24/22 05:52 MCHC 34.4 g/dL (32.0-36.0) 03/24/22 05:52 RDW Std Deviation 41.6 fL (36.4-46.3) 03/24/22 05:52 RDW Coeff of Mio 12.1 % (11.5-14.5) 03/24/22 05:52 Plt Count 198 K/uL (130-400) 03/24/22 05:52 MPV 10.6 fL (9.4-12.3) 03/24/22 05:52 Immature Gran % (Auto) 0.5 % 03/24/22 05:52 Neut % (Auto) 61.5 % 03/24/22 05:52 Lymph % (Auto) 28.8 % 03/24/22 05:52 Dunn % (Auto) 6.4 % 03/24/22 05:52 Eos % (Auto) 2.4 % 03/24/22 05:52 Baso % (Auto) 0.4 % 03/24/22 05:52 Neut # (Auto) 4.83 K/uL (1.4-6.5) 03/24/22 05:52 Lymph # (Auto) 2.26 K/uL (1.2-3.4) 03/24/22 05:52 Dunn # (Auto) 0.50 K/uL (0.24-0.82) 03/24/22 05:52 Eos # (Auto) 0.19 K/uL (0-0.50) 03/24/22 05:52 Baso # (Auto) 0.03 K/uL (0-0.2) 03/24/22 05:52 Immature Gran # (Auto) 0.04 K/uL (0.00-0.02) H 03/24/22 05:52 Sodium 139 mmol/L (136-145) 03/24/22 05:52 Potassium 3.4 mmol/L (3.5-5.1) L 03/24/22 05:52 Chloride 107 mmol/L (98-107) 03/24/22 05:52 Carbon Dioxide 26 mmol/L (21-32) 03/24/22 05:52 Anion Gap 6 (3-11) 03/24/22 05:52 BUN 13 mg/dl (6-23) 03/24/22 05:52 Creatinine 0.74 mg/dl (0.6-1.2) 03/24/22 05:52 Est Cr Clr Drug Dosing 54.0 ml/min 03/24/22 05:52 Est GFR ( Amer) 89.3 ml/min 03/24/22 05:52 Est GFR (Non-Af Amer) 77.1 ml/min 03/24/22 05:52 BUN/Creatinine Ratio 17.6 (10-20) 03/24/22 05:52 Glucose 93 mg/dl (70-99(Fasting)) 03/24/22 05:52 Calcium 8.4 mg/dl (8.5-10.1) L 03/24/22 05:52 Magnesium 2.0 mg/dl (1.7-2.4) 03/24/22 05:52 Total Bilirubin 1.3 mg/dl (0.2-1.0) H 03/24/22 05:52 Direct Bilirubin 0.2 mg/dl (0-0.2) 03/24/22 05:52 AST 252 U/L (13-39) H 03/24/22 05:52 ALT 360 U/L (7-52) H 03/24/22 05:52 Alkaline Phosphatase 153 U/L (34-104) H 03/24/22 05:52 Troponin I High Sens 8.5 pg/ml (0-14) 03/23/22 18:57 Total Protein 5.8 gm/dl (6.0-8.3) L 03/24/22 05:52 Albumin 3.5 gm/dl (3.4-5.0) 03/24/22 05:52 Globulin 2.8 gm/dl (2.5-4.0) 03/23/22 18:57 Albumin/Globulin Ratio 1.5 (0.9-2) 03/23/22 18:57 Lipase 805 U/L (11-82) H 03/24/22 05:52 SARS-CoV-2, RNA, NAAT NEGATIVE (NEGATIVE) 03/23/22 Unknown Impressions Abdomen/Pelvis CT 03/23/22 20:08 CT abd pelvis IV con only CLINICAL HISTORY: pancreatitis TECHNIQUE: Helical axial images of the abdomen and pelvis were obtained and dis played. Automated dose lowering techniques and/or adjustment according to patient size were utilized for this exam. This exam was performed with intravenous contrast. CT DOSE: 322.35 mGy.cm COMPARISON: Comparison is made to gallbladder ultrasound 03/24/2022 FINDINGS: Lower chest: Bibasilar atelectasis versus scarring is seen. Liver: Unremarkable. No focal lesions are seen. Gallbladder and biliary tree: The gallbladder wall thickening is seen with pericholecystic fluid. No intra- or extrahepatic biliary ductal dilation. Pancreas: Peripancreatic stranding is seen without focal fluid collection. Spleen: Unremarkable. Adrenals: Unremarkable. Kidneys and ureters: Subcentimeter hypodensities are too small to characterize. Bladder: Unremarkable. Reproductive organs: Unremarkable. Bowel: Diverticulosis is seen without evidence of diverticulitis. The appendix is normal. Lymph nodes Retroperitoneal: Unremarkable. Pelvic: Unremarkable. Mesenteric: Unremarkable. Peritoneum: Normal. Vessels: Atherosclerotic calcifications are seen. Abdominal wall: Unremarkable. Bones: Degenerative changes in the visualized spine. IMPRESSION: Gallbladder wall thickening and pericholecystic edema concerning for acute cholecystitis. Peripancreatic stranding is seen without focal fluid collections, which may represent acute pancreatitis. ACT 112: Negative or not required by law. Electronically signed by: Esdras Díaz M.D. 03/24/2022 8:53 AM Gallbladder Ultrasound 03/24/22 23:03 ULTRASOUND RIGHT UPPER QUADRANT ABDOMEN CLINICAL HISTORY: Elevated hepatic transaminases. COMPARISON STUDY: Abdominal CT dated 03/23/2022. TECHNIQUE: Real-time, grayscale, and color flow sonography of the right upper quadrant of the abdomen was performed. Images are reviewed in the transverse and longitudinal planes. FINDINGS: Liver: The liver is normal in size and echotexture. There is no intrahepatic biliary ductal dilatation. The main portal vein is patent. Gallbladder: There are gallstones and biliary sludge. The gallbladder wall is thickened and appears edematous measuring up to 5 mm. There is pericolic cystic fluid/edema. A sonographic Sweet's sign is reportedly absent. The common bile duct measures up to 0.4 cm in diameter. Pancreas: The pancreatic body and tail appear mildly edematous. Right kidney: Survey images of the right kidney demonstrate normal size and echotexture. There is no hydronephrosis. A subcentimeter cyst is noted in the interpolar region. Ascites: None. IMPRESSION: 1. Cholelithiasis and biliary sludge within a thick-walled and edematous appearing gallbladder. The appearance is highly suspicious for acute cholecystitis. 2. The pancreatic body and tail appeared edematous. This likely corresponds to acute pancreatitis when correlated with today's abdominal CT scan. Consider precautionary sonographic follow-up in 3-4 months time to document resolution. 3. There is no intra or extrahepatic biliary ductal dilatation. ACT 112: Negative or not required by law. Electronically signed by: Jerson Ayala M.D. 03/24/2022 6:35 AM
[2022-03-24] MEDS: ASPIRIN 81 MG ECTAB PO SCH (13:09)
[2022-03-24] MEDS: CHOLECALCIFEROL 1,000 UNITS 25 MCG TAB PO SCH (13:09)
[2022-03-24] MEDS: MONTELUKAST SODIUM 10 MG TABLET PO SCH (13:09)
[2022-03-24] MEDS: CEROVITE ADV FORMULA TAB PO SCH (13:09)
[2022-03-24] MEDS: PANTOprazole 40 MG TAB PO SCH (13:09)
--- NOTE | 2022-03-24 15:28 | Electrocardiogram Report ---
Test Reason : Blood Pressure : / mmHG Vent. Rate : 071 BPM Atrial Rate : 070 BPM P-R Int : 000 ms QRS Dur : 072 ms QT Int : 406 ms P-R-T Axes : 000 001 018 degrees QTc Int : 441 ms Poor data quality, interpretation may be adversely affected Sinus rhythm Normal ECG No previous ECGs available Confirmed by Hari Marcos ([id number]) on 03/24/2022 3:27:32 PM Referred By: REFERRED SELF Confirmed By:Hari Marcos
--- NOTE | 2022-03-24 15:38 | Electrocardiogram Report ---
Test Reason : Blood Pressure : / mmHG Vent. Rate : 069 BPM Atrial Rate : 069 BPM P-R Int : 178 ms QRS Dur : 086 ms QT Int : 422 ms P-R-T Axes : 067 015 033 degrees QTc Int : 452 ms Normal sinus rhythm Diffuse Minor Nonspecific T wave abnormality Abnormal ECG When compared with ECG of 23-MAR-2022 18:39, No significant change Confirmed by Hari Marcos ([id number]) on 03/24/2022 3:38:19 PM Referred By: REFERRED SELF Confirmed By:Hari Marcos
--- NOTE | 2022-03-24 16:37 | Anesthesiology Consultation ---
Date of Service March 24, 2022 Assessment & Plan Chart Review Chart Review: Acceptable Risk for Surgery Consults Requested none ASA ASA2 Proposed Anesthesia Anesthesia Type: General Risk / Benefits Reviewed With: PT / POA / Parent / Guardian, Accepts Plan and Informed Consent Obtained History Surgery Operation Date: 03/25/22 07:30 Proposed Procedures p Laparoscopic Cholecystectomy with Cholangiogram - Luis Alston MD Height/Weight Height: 5 ft 1 in Weight: 67 kg Allergies Allergy/AdvReac Type Severity Reaction Status Date / Time adhesive Allergy Intermediate RASH Verified 03/23/22 19:35 alendronate sodium AdvReac Intermediate UPSET Verified 03/23/22 19:35 STOMACH AND JAW PAIN Medications Home Medications Medication Instructions Recorded Confirmed Last Taken albuterol sulfate 90 mcg/actuation 2 puff inhalation DIRECTED PRN 03/23/22 03/23/22 Unknown aerosol inhaler Shortness Of Breath Or Wheezing aspirin 81 mg tablet,delayed 81 mg PO DAILY 03/23/22 03/23/22 03/22/22 release biotin 10,000 mcg capsule 10,000 mcg PO DAILY 03/23/22 03/23/22 03/22/22 [id number]-txpsvqvss-fxte 333 mg-133 1 tab PO DAILY 03/23/22 03/23/22 03/22/22 mg-5 mg tablet cholecalciferol (vitamin D3) 25 25 mcg PO DAILY 03/23/22 03/23/22 03/22/22 mcg (1,000 unit) capsule (Vitamin D3) dextromethorphan-guaifenesin 30 1 tab PO Q12H 03/23/22 03/23/22 03/22/22 mg-600 mg tablet extended [id number] hr (Mucinex DM) glucosamine 125 mg-chondroitn 100 1 tab PO BID 03/23/22 03/23/22 03/22/22 mg-cartilg 40 mg-colagn 10 mg tablet hydrochlorothiazide 12.5 mg capsule 12.5 mg PO QAM 03/23/22 03/23/22 03/23/22 levothyroxine 125 mcg tablet 125 mcg PO QAM 03/23/22 03/23/22 03/23/22 lisinopril 10 mg tablet 10 mg PO HS 03/23/22 03/23/22 Unknown melatonin 10 mg tablet 20 mg PO HS PRN Sleep 03/23/22 03/23/22 Unknown montelukast 10 mg tablet 10 mg PO DAILY 03/23/22 03/23/22 03/22/22 multivit,mins no.24-iron ps 1 tab PO DAILY 03/23/22 03/23/22 03/22/22 complex 60 mg iron-folic acid 1 mg tablet omeprazole 20 mg capsule,delayed 20 mg PO QAM 03/23/22 03/23/22 03/23/22 release psyllium seed (sugar) oral powder 1 tsp PO DAILY 03/23/22 03/23/22 03/22/22 (Metamucil (sugar) oral powder) simvastatin 40 mg tablet 40 mg PO HS 03/23/22 03/23/22 03/22/22 Active Medications Generic Name Dose Route Start Last Admin Trade Name Isaiasq PRN Reason Stop Dose Admin Aspirin 81 mg 03/24/22 09:00 03/24/22 13:09 Aspirin 81 Mg Ectab PO 04/23/22 08:59 Not Given DAILY DESIRAE Enoxaparin Sodium 40 mg 03/23/22 23:30 03/24/22 21:29 Enoxaparin Inj 40 Mg/0.4 Ml Syr SQ 04/22/22 23:29 40 mg HS DESIRAE Administration Hydromorphone HCl 0.25 - 0.5 mg 03/24/22 13:04 03/24/22 13:55 Hydromorphone Inj 0.5 Mg/0.5 Ml Syr IV 04/06/22 23:02 0.25 mg Q4H PRN Administration Pain Lactated Ringer's 1,000 mls @ 100 mls/hr 03/23/22 23:03 03/25/22 05:35 Lr IV 04/22/22 23:02 100 mls/hr .Q10H DESIRAE Administration Piperacillin Sod/Tazobactam 115 mls @ 28.75 mls/hr 03/24/22 06:00 03/25/22 05:38 Sod 3.375 gm/ Dextrose IV 04/03/22 05:59 28.8 mls/hr Q8H DESIRAE Administration Protocol Levothyroxine Sodium 125 mcg 03/24/22 06:30 03/25/22 05:36 Levothyroxine Sodium 125 Mcg Tablet PO 04/23/22 06:29 125 mcg DAILYBB DESIRAE Administration Lisinopril 10 mg 03/24/22 21:00 03/24/22 21:30 Lisinopril 10 Mg Tab PO 04/23/22 20:59 10 mg HS DESIRAE Administration Montelukast Sodium 10 mg 03/24/22 09:00 03/24/22 13:09 Montelukast Sodium 10 Mg Tablet PO 04/23/22 08:59 Not Given DAILY DESIRAE Multivitamins/Minerals 1 tab 03/24/22 09:00 03/24/22 13:09 Cerovite Adv Formula Tab PO 04/23/22 08:59 Not Given DAILY DESIRAE Ondansetron HCl 4 mg 03/23/22 23:03 03/24/22 19:57 Ondansetron Inj 2 Mg/Ml 2 Ml Vial IV 04/22/22 23:02 4 mg Q6H PRN Administration Nausea Pantoprazole Sodium 40 mg 03/24/22 09:00 03/24/22 13:09 Pantoprazole 40 Mg Tab PO 04/23/22 08:59 Not Given QAM DESIRAE Vitamin D 1,000 units 03/24/22 09:00 03/24/22 13:09 Cholecalciferol 1,000 Units 25 Mcg Tab PO 04/23/22 08:59 Not Given DAILY DESIRAE NPO Date Last Intake of Fluids: 03/24/22 Time Last Intake of Fluids: 23:59 Date Last Intake of Solids: 03/24/22 Time Last Intake of Solids: 23:59 Last Intake of Solids Comment: N.p.o. advised Past Medical History Medical History Acute acalculous cholecystitis Asthma Borderline diabetes History of sigmoidoscopy Hypercholesterolemia Hypertension Hypothyroidism Kidney stones Migraine Mixed rhinitis Osteoporosis Past use of tobacco Exercise / Class Metabolic Activity II 4-5 Yardwork/Stairs/Walk up hill Past Surgical History Surgical History (Updated 03/24/22 @ 16:35 by Karin Witt DO) History of colonoscopy History of dilatation and curettage History of tubal ligation S/P breast biopsy Past Anesthesia History No Hx of Anesthesia Complications and No Family Hx of Anesthesia Complications History of PONV No Hx of PONV and No Hx of Motion Sickness Social History Smoking Status: Former smoker Hx Alcohol Use: No Hx Substance Use: No Physical Exam Vital Signs Last Vital Signs Temp 36.7 C 03/24/22 21:28 Pulse 68 03/24/22 21:28 Resp 16 11/25/22 21:28 BP 155/80 H 11/25/22 21:28 Pulse Ox 93 03/24/22 21:28 O2 Del Method 03/24/22 21:28 ENMT Mouth: + dentition abnormality (1 cap); no TMJ abnormality Thyromental Distance: > or= 3.5 Finger Breadths Mallampati Class: II Neck normal visual inspection and trachea midline; neck extension not limited Respiratory normal respiratory effort Auscultation: lungs clear to auscultation bilaterally and + wheezes (Mild) Cardiovascular Rate/Rhythm: regular rate and regular rhythm Heart Sounds: no murmur Musculoskeletal Spine: normal cervical ROM Extremities: full ROM of extremities Neurologic moves all extremities Psychiatric Orientation: alert and oriented x 3 Testing Laboratory Results 03/25/22 05:33 03/25/22 05:33 Electrocardiogram Date: 03/24/22 Findings: + NSR @ (69) and + NSST changes No significant change from 03/23/2022
[2022-03-24] MEDS ORDERED: KETOROLAC 30 MG/ML VIAL IV ONE (20:15)
[2022-03-24] MEDS: lisinopril 10 MG TAB PO SCH (21:30)
[2022-03-25] MEDS: LACTATED RINGER'S 1,000 ML IV SCH (05:35)
[2022-03-25] MEDS: LEVOTHYROXINE SODIUM 125 MCG TABLET PO SCH (05:36)
[2022-03-25] MEDS: PIPERACILLIN/TAZOBACTAM 3.375 GM in DEXTROSE 5% 100 ML IV SCH ×3 (05:38→21:49)
[2022-03-25 06:04] LABS: Basophils # (auto) 0.04 K/uL (0-0.2); Basophils % (auto) 0.7 %; Eosinophils # (auto) 0.23 K/uL (0-0.50); Eosinophils % (auto) 3.7 %; Hematocrit (blood only) 34.5 % (34.1-44.9); Hemoglobin 11.7 g/dl (12.0-16.0); Immature Granulocytes # (auto) 0.02 K/uL (0.00-0.02); Immature Granulocytes % (auto) 0.3 %; Lymphocytes # (auto) 2.17 K/uL (1.2-3.4); Lymphocytes % (auto) 35.3 %; Mean Corpuscular Hemoglobin 32.2 pg (25.0-34.0); Mean Corpuscular Hgb Conc 33.9 g/dL (32.0-36.0); Mean Platelet Volume 10.5 fL (9.4-12.3); Monocytes # (auto) 0.53 K/uL (0.24-0.82); Monocytes % (auto) 8.6 %; Neutrophils # (auto) 3.15 K/uL (1.4-6.5); Neutrophils % (auto) 51.4 %; Platelet Count 173 K/uL (130-400); RDW Coefficient of Variation 12.3 % (11.5-14.5); RDW Standard Deviation 43.4 fL (36.4-46.3); Red Blood Count 3.63 M/uL (3.93-5.22); White Blood Count 6.14 K/ul (4.8-10.8)
[2022-03-25 06:33] LABS: Albumin Globulin Ratio 1.4 (0.9-2); Albumin Level 3.3 gm/dl (3.4-5.0); BUN Creatinine Ratio 12.9 (10-20); Bilirubin,Total 0.9 mg/dl (0.2-1.0); Calcium 8.4 mg/dl (8.5-10.1); Creatinine Clr Calc Pharmacy 57.1 ml/min; Est GFR (African American) 95.5 ml/min; Est GFR (Non-African American) 82.4 ml/min; Globulin 2.3 gm/dl (2.5-4.0); Potassium 3.4 mmol/L (3.5-5.1); Total Protein 5.6 gm/dl (6.0-8.3)
[2022-03-25] MEDS ORDERED: ONDANSETRON INJ 2 MG/ML 2 ML VIAL ONE ×2 (06:50→09:12)
[2022-03-25] MEDS ORDERED: LIDOCAINE 2% 2 ML VIAL/AMP(20MG/ML) INFIL ONE (06:50)
[2022-03-25] MEDS ORDERED: ROCURONIUM BROMIDE 10 MG/ML 5 ML VIAL IV ONE (06:50)
[2022-03-25] MEDS ORDERED: PROPOFOL IV EMULSION 10 MG/ML 20 ML VIAL IV ONE (06:50)
[2022-03-25] MEDS ORDERED: fentaNYL citrate 100 MCG/2 ML VIAL ONE ×2 (06:50→09:12)
[2022-03-25] MEDS ORDERED: BUPIVACAINE 0.5 % 5 MG/1 ML MPF 30ML VIAL ONE (06:56)
[2022-03-25] MEDS ORDERED: EPINEPHrine INJ 1 MG/ML AMP ONE (06:56)
[2022-03-25] MEDS ORDERED: MEPERIDINE HCL 25 MG/ML CARP/VIAL IV PRN (07:08)
[2022-03-25] MEDS ORDERED: ePHEDrine sulfate 50 MG/ML AMP IV PRN (07:08)
[2022-03-25] MEDS ORDERED: ATROPINE SULFATE 0.1 MG/ML 10ML SYR IV PRN (07:08)
[2022-03-25] MEDS ORDERED: ONDANSETRON INJ 2 MG/ML 2 ML VIAL IV PRN (07:08)
--- NOTE | 2022-03-25 07:28 | History & Physical Bridge Note ---
Date of Service March 25, 2022 History & Physical Bridge Note I have examined the patient, reviewed the History & Physical and in the interval since the performance of the History & Physical I have noted the following changes of clinical significance: no changes noted
[2022-03-25] MEDS ORDERED: ALBUTEROL HFA INHALER 8.5 GM INH ONE (07:30)
[2022-03-25] MEDS ORDERED: hydrALAZINE HCL 20 MG/ML VIAL ONE (08:17)
[2022-03-25] MEDS ORDERED: NEOSTIGMINE METHYLSULFATE 1 MG/ML 10ML VIAL ONE (08:27)
[2022-03-25] MEDS ORDERED: GLYCOPYRROLATE 0.2 MG/ML VIAL ONE (08:27)
--- NOTE | 2022-03-25 08:35 | Fluoroscopy Report ---
INTRAOPERATIVE RADIOGRAPH CLINICAL HISTORY: Intraoperative cholangiogram. Fluoroscopy time: 13 seconds. FINDINGS: A single spot fluoroscopic view of the right upper quadrant is correlated with abdominal CT dated 03/23/2022. Cholecystectomy clips are noted. There is smooth contrast opacification of the com mon bile duct. There is no intra or extrahepatic biliary ductal dilatation. No filling defects are se en to suggest choledocholithiasis. There is free passage of contrast into the duodenum. IMPRESSION: Intraoperative cholangiogram image as above. Electronically signed by: Jerson Ayala M.D. 03/25/2022 8:34 AM
[2022-03-25] MEDS ORDERED: OPTIRAY 300 IV ONE (08:41)
--- NOTE | 2022-03-25 08:50 | Post Operative Brief Note ---
Immediate Post Op Note v1 Date of Surgery March 25, 2022 Pre & Post Diagnosis Operation Date: 03/25/22 07:30 Pre-Op Diagnosis: Acute acalculous cholecystitis Post-Op Diagnosis: Acute acalculous cholecystitis I identified the patient and participated in the time-out.: Yes Procedure Operation Date: 03/25/22 07:30 Actual Procedures p Laparoscopic Cholecystectomy with Cholangiogram(Not Applicable) - Luis Alston MD Surgeon Luis Alston MD Marketing Sales Consultant none Estimated Blood Loss 15 Findings Consistent with Post-Op Diagnosis
[2022-03-25] MEDS ORDERED: ALBUT/IPRATROP 3MG/0.5MG NEB 3 ML VIAL INH PRN (09:02)
[2022-03-25] MEDS ORDERED: ALBUT/IPRATROP 3MG/0.5MG NEB 3 ML VIAL ONE (09:03)
[2022-03-25] MEDS: fentaNYL citrate 100 MCG/2 ML VIAL IV PRN ×4 (09:14→09:29)
[2022-03-25] MEDS ORDERED: MoRPHine SULFATE 10 MG/ML CARP/VIAL ONE (09:33)
[2022-03-25] MEDS: MoRPHine SULFATE 10 MG/ML CARP/VIAL IV PRN ×2 (09:34→09:39)
[2022-03-25] MEDS ORDERED: PROMETHAZINE HCL 12.5 MG in SODIUM CHLORIDE 0.9% 50 ML IV PRN (09:51)
[2022-03-25] MEDS ORDERED: KETOROLAC 30 MG/ML VIAL IV PRN (09:51)
[2022-03-25] MEDS ORDERED: DEXAMETHASONE SOD INJ 4 MG/ML VIAL IV PRN (09:51)
[2022-03-25] MEDS ORDERED: KETOROLAC 30 MG/ML VIAL ONE (09:54)
--- NOTE | 2022-03-25 10:04 | Operative Report (OR) ---
DATE OF SURGERY: 03/25/2022. PREOPERATIVE DIAGNOSES: Acute cholecystitis with elevated LFTs. POSTOPERATIVE DIAGNOSES: Acute cholecystitis with a normal intraoperative cholangiogram without fill ing defects. PROCEDURES PERFORMED: Laparoscopic cholecystectomy with intraoperative cholangiogram. SURGEON: Luis Alston MD. WAD IMPREGNATOR: None. ANESTHESIA: General endotracheal with 0.5% Marcaine with epinephrine local 20 mL. ESTIMATED BLOOD LOSS: 15 mL. SPECIMENS: Gallbladder sent to pathologic evaluation. DRAINS: None. COMPLICATIONS: None. INDICATIONS: This is a 81-year-old female who was admitted to the ED with acute abdominal pain and u nderwent a workup, which showed acute cholecystitis and some elevated LFTs. She was evaluated by GI who had a low opinion that had a low likelihood that she would have a common bile duct stone. We elysia ked to her in detail and recommended laparoscopic cholecystectomy with intraoperative cholangiogram. She understands the risk of an open procedure, common bile duct injury, retained common bile duct st one, bleeding, infection and possible bile leak. DESCRIPTION OF PROCEDURE: The patient was taken to the OR and underwent excellent general endotrache al anesthesia. Abdomen was prepped and draped in normal sterile fashion. A transverse supraumbilica l incision was made. Dissection was taken down to identify the anterior fascia. 2-0 Vic[address] was plac ed on either side of the midline. The midline was incised sharply and a Sherry trocar was then inser chaim. The Sherry trocar was then secured and pneumoperitoneum was achieved to 20 mmHg pressure. The patient was placed in head up and rolled to the left. Diagnostic lap was done. She had an obvious a cute gallbladder with some adhesions and an edematous wall consistent with acute cholecystitis. A 11 suprapubic and 2 five lateral ports were placed in normal fashion. The fundus of the gallbladder wa s grasped and retracted superiorly. The neck was grasped after some adhesions were taken down and re tracted laterally. The cystic duct and cystic artery were identified and skeletonized using electroc autery hook and grasper. Once a medial and lateral window was created between the gallbladder and th e gallbladder fossa showing both these structures going to the gallbladder. Two clips were placed pr oximally on the cystic artery, one distally and the cystic artery was transected. The cystic duct wa s then clipped proximally and an incision was made into the duct partially. A 14-gauge Angiocath was then used to enter the abdominal wall. A cholangiogram catheter was then inserted and threaded into the cystic duct. This was secured with a clip. The pneumoperitoneum was decompressed. A cholangio gram was performed, which showed contrast into the duodenum and bile filling the common duct and the radicals without any filling defect obviously seen. Once this was done, pneumoperitoneum was reestab lished. The catheter was removed. Three clips were placed distally on the cystic duct and cystic du ct was transected. Electrocautery hook was then used to move the gallbladder off the gallbladder fos sa. This was sent for pathologic evaluation. Pneumoperitoneum was reestablished. The abdomen was i rrigated out and suctioned clear. There was some raw areas on the gallbladder fossa, which were caut erized. The abdomen was then irrigated out and suctioned until it was clear. Ports were then remove d. Pneumoperitoneum was decompressed. 0 Vicryl was used to close the fascial defect. Marcaine 0.5% with epinephrine local was then used to create local blocks in the fascia and the skin. Interrupted Vicryl was used to close the skin. Steri-Strips and benzoin were used to reinforce the incisions. Sterile dressings were applied. The patient tolerated the procedure well without complications, and she will be sent to recovery for period of observation. When she passes criteria, she will go to the floor for the rest of her care. Job ID: [id number]
--- NOTE | 2022-03-25 10:12 | Anesthesiology Progress Note ---
Date of Service March 25, 2022 Anesthesia Post Procedure Vital Signs Vital Signs: Temp Pulse Pulse Resp BP Pulse Ox O2 Del Method 03/25/22 10:05 81 19 140/66 94 Nasal Cannula 03/25/22 09:55 36.4 C L 78 20 148/73 H 95 Nasal Cannula 03/25/22 09:45 82 16 148/66 H 92 Room Air 03/25/22 09:35 76 20 143/68 H 96 Oxymask 03/25/22 09:25 78 18 146/69 H 97 Oxymask 03/25/22 09:15 71 20 142/64 H 96 Oxymask 03/25/22 09:05 78 16 136/59 L 97 Oxymask 03/25/22 08:58 36.2 C L 76 18 139/70 98 Oxymask 03/25/22 09:07 72 16 96 Oxymask 03/24/22 21:28 36.7 C 68 16 155/80 H 93 Room Air 03/24/22 15:26 36.9 C 64 18 134/73 94 Room Air O2 Flow Rate 03/25/22 10:05 2 03/25/22 09:55 2 03/25/22 09:45 03/25/22 09:35 3 03/25/22 09:25 4 03/25/22 09:15 4 03/25/22 09:05 6 03/25/22 08:58 15 03/25/22 09:07 9 03/24/22 21:28 03/24/22 15:26 Pain Intensity Head: Pain Intensity: 3 Abdomen: Pain Intensity: 4 Transfer of Care Handoff Completed per policy Notes Mental Status: alert / awake / arousable Patient Amnestic to Procedure: Yes Nausea / Vomiting: adequately controlled Pain: adequately controlled Airway Patency, RR, SpO2: stable & adequate BP & HR: stable & adequate Hydration State: stable & adequate Anesthetic Complications: no major complications apparent and Pt Satisfied with anesthetic care
[2022-03-25] MEDS ORDERED: ACETAMINOPHEN 325 MG TAB PO PRN (10:35)
[2022-03-25] MEDS ORDERED: oxyCODONE/ACETAMINOPHEN 5mg/325mg TAB PO PRN ×2 (10:35)
[2022-03-25 12:46] LABS: HBSAG NON-REACTIVE (NON-REACTIVE); Hepatitis A Antibody IgM NON-REACTIVE (NON-REACTIVE); Hepatitis B Core Antibody IgM NON-REACTIVE (NON-REACTIVE)
[2022-03-25] MEDS: PANTOprazole 40 MG TAB PO SCH (13:19)
[2022-03-25] MEDS: MONTELUKAST SODIUM 10 MG TABLET PO SCH (13:19)
[2022-03-25] MEDS: CHOLECALCIFEROL 1,000 UNITS 25 MCG TAB PO SCH (13:19)
[2022-03-25] MEDS: ASPIRIN 81 MG ECTAB PO SCH (13:20)
[2022-03-25] MEDS: CEROVITE ADV FORMULA TAB PO SCH (13:20)
--- NOTE | 2022-03-25 14:04 | Hospitalist Progress Note ---
Date of Service March 25, 2022 Assessment & Plan (1) Acute calculous cholecystitis: (2) Pancreatitis: (3) Elevated liver enzymes: Plan: Patient is a 81-year-old female who presented with abdominal pain, nausea and vomiting. CT abdomen and pelvis shows cholelithiasis and findings consistent with pancreatitis Lipase 9800 LFTs downtrending Liver ultrasound shows acute cholecystitis s/p laparoscopic cholecystectomy on 03/25. Intraoperative cholangiogram did not show any filling defects. Plan; Diet as per surgery; currently on full liquid Continue pain control with Dilaudid Continue on IV Zosyn. Plan Chronic conditions: History of hypertension: Hold hydrochlorothiazide. Continue lisinopril. Will monitor the blood pressure. History of prediabetes: Follow HbA1c levels. History of hypothyroidism: Continue Synthroid. History of asthma: Continue her home medication. Currently stable. Hyperlipidemia: Holding the Statin as liver functions are elevated. Deep venous thrombosis prophylaxis: resume heparin from tomorrow. Admission and Anticipated Discharge Date Admission Date: March 23, 2022 Subjective Patient seen and examined after laparoscopic cholecystectomy. She is alert oriented x3; not in distress. Pain is well controlled. Review of Systems Review of Systems: All systems reviewed & are unremarkable except as noted in Subjective Physical Exam Physical Exam: Constitutional: WD/WN, vitals as above, NAD, sitting up in bed, pleasant, conversing easily Respiratory: normal respiratory effort, lungs clear to auscultation, no wheeze, rales, rhonchi. Normal insp/exp effort, no accessory muscle use Cardiovascular: RRR, no murmur, no edema Vessels: no JVD or carotid bruit Chest: normal inspection of chest Abdomen: Dressing intact; no soakage. Musculoskeletal: no cyanosis or clubbing, extremities motor strength 5/5 Skin: no rashes, warm and dry normal turgor Neurologic: PERRL, EOMI, accommodation nl, no face palsy, no dysarthria CN's II- XI intact bilaterally and moves all extremities Psychiatric: A+Ox3, euthymic affect Lymphatic: no cervical or axillary lymphadenopathy : deferred Results & Data Results & Data ([facility]) Vital Signs (Past 12 Hours) Vital Signs Temp Pulse Pulse Resp BP Pulse Ox O2 Del Method 03/25/22 12:30 36.4 C L 68 16 121/68 91 Nasal Cannula 03/25/22 11:30 36.4 C L 77 16 126/71 96 Nasal Cannula 03/25/22 10:30 Nasal Cannula 03/25/22 10:30 36.4 C L 73 16 124/68 94 Nasal Cannula 03/25/22 11:00 36.4 C L 73 16 130/63 92 Nasal Cannula 03/25/22 10:15 36.5 C 76 12 125/82 96 Nasal Cannula 03/25/22 10:05 81 19 140/66 94 Nasal Cannula 03/25/22 09:55 36.4 C L 78 20 148/73 H 95 Nasal Cannula 03/25/22 09:45 82 16 148/66 H 92 Room Air 03/25/22 09:35 76 20 143/68 H 96 Oxymask 03/25/22 09:25 78 18 146/69 H 97 Oxymask 03/25/22 09:15 71 20 142/64 H 96 Oxymask 03/25/22 09:05 78 16 136/59 L 97 Oxymask 03/25/22 08:58 36.2 C L 76 18 139/70 98 Oxymask 03/25/22 09:07 72 16 96 Oxymask O2 Flow Rate 03/25/22 12:30 2 03/25/22 11:30 2 03/25/22 10:30 2 03/25/22 10:30 2 03/25/22 11:00 2 03/25/22 10:15 2 03/25/22 10:05 2 03/25/22 09:55 2 03/25/22 09:45 03/25/22 09:35 3 03/25/22 09:25 4 03/25/22 09:15 4 03/25/22 09:05 6 03/25/22 08:58 15 03/25/22 09:07 9 Laboratory Results Laboratory Results WBC 6.14 K/ul (4.8-10.8) 03/25/22 05:33 RBC 3.63 M/uL (3.93-5.22) L 03/25/22 05:33 Hgb 11.7 g/dl (12.0-16.0) L 03/25/22 05:33 Hct 34.5 % (34.1-44.9) 03/25/22 05:33 MCV 95.0 fL (80.0-100.0) 03/25/22 05:33 MCH 32.2 pg (25.0-34.0) 03/25/22 05:33 MCHC 33.9 g/dL (32.0-36.0) 03/25/22 05:33 RDW Std Deviation 43.4 fL (36.4-46.3) 03/25/22 05:33 RDW Coeff of Mio 12.3 % (11.5-14.5) 03/25/22 05:33 Plt Count 173 K/uL (130-400) 03/25/22 05:33 MPV 10.5 fL (9.4-12.3) 03/25/22 05:33 Immature Gran % (Auto) 0.3 % 03/25/22 05:33 Neut % (Auto) 51.4 % 03/25/22 05:33 Lymph % (Auto) 35.3 % 03/25/22 05:33 Grand % (Auto) 8.6 % 03/25/22 05:33 Eos % (Auto) 3.7 % 03/25/22 05:33 Baso % (Auto) 0.7 % 03/25/22 05:33 Neut # (Auto) 3.15 K/uL (1.4-6.5) 03/25/22 05:33 Lymph # (Auto) 2.17 K/uL (1.2-3.4) 03/25/22 05:33 Grand # (Auto) 0.53 K/uL (0.24-0.82) 03/25/22 05:33 Eos # (Auto) 0.23 K/uL (0-0.50) 03/25/22 05:33 Baso # (Auto) 0.04 K/uL (0-0.2) 03/25/22 05:33 Immature Gran # (Auto) 0.02 K/uL (0.00-0.02) 03/25/22 05:33 Sodium 139 mmol/L (136-145) 03/25/22 05:33 Potassium 3.4 mmol/L (3.5-5.1) L 03/25/22 05:33 Chloride 108 mmol/L (98-107) H 03/25/22 05:33 Carbon Dioxide 25 mmol/L (21-32) 03/25/22 05:33 Anion Gap 6 (3-11) 03/25/22 05:33 BUN 9 mg/dl (6-23) 03/25/22 05:33 Creatinine 0.70 mg/dl (0.6-1.2) 03/25/22 05:33 Est Cr Clr Drug Dosing 57.1 ml/min 03/25/22 05:33 Est GFR ( Amer) 95.5 ml/min 03/25/22 05:33 Est GFR (Non-Af Amer) 82.4 ml/min 03/25/22 05:33 BUN/Creatinine Ratio 12.9 (10-20) 03/25/22 05:33 Glucose 91 mg/dl (70-99(Fasting)) 03/25/22 05:33 Calcium 8.4 mg/dl (8.5-10.1) L 03/25/22 05:33 Magnesium 2.0 mg/dl (1.7-2.4) 03/24/22 05:52 Total Bilirubin 0.9 mg/dl (0.2-1.0) 03/25/22 05:33 Direct Bilirubin 0.2 mg/dl (0-0.2) 03/24/22 05:52 AST 89 U/L (13-39) H 03/25/22 05:33 ALT 218 U/L (7-52) H 03/25/22 05:33 Alkaline Phosphatase 125 U/L (34-104) H 03/25/22 05:33 Troponin I High Sens 8.5 pg/ml (0-14) 03/23/22 18:57 Total Protein 5.6 gm/dl (6.0-8.3) L 03/25/22 05:33 Albumin 3.3 gm/dl (3.4-5.0) L 03/25/22 05:33 Globulin 2.3 gm/dl (2.5-4.0) L 03/25/22 05:33 Albumin/Globulin Ratio 1.4 (0.9-2) 03/25/22 05:33 Lipase 805 U/L (11-82) H 03/24/22 05:52 Hepatitis A IgM Ab NON-REACTIVE (NON-REACTIVE) 03/24/22 05:52 Hep Bs Antigen NON-REACTIVE (NON-REACTIVE) 03/24/22 05:52 Hep Bs Ag Confirmation TNP 03/24/22 05:52 Hep B Core IgM Ab NON-REACTIVE (NON-REACTIVE) 03/24/22 05:52 Hepatitis C Ab (EIA) NON-REACTIVE (NON-REACTIVE) 03/24/22 05:52 Hep C Ab Signal/Cutoff <0.02 (<1.00) 03/24/22 05:52 SARS-CoV-2, RNA, NAAT NEGATIVE (NEGATIVE) 03/23/22 Unknown Impressions Abdomen/Pelvis CT 03/23/22 20:08 CT abd pelvis IV con only CLINICAL HISTORY: pancreatitis TECHNIQUE: Helical axial images of the abdomen and pelvis were obtained and displayed. Automated dose lowering techniques and/or adjustment according to patient size were utilized for this exam. This exam was performed with intravenous contrast. CT DOSE: 322.35 mGy.cm COMPARISON: Comparison is made to gallbladder ultrasound 03/24/2022 FINDINGS: Lower chest: Bibasilar atelectasis versus scarring is seen. Liver: Unremarkable. No focal lesions are seen. Gallbladder and biliary tree: The gallbladder wall thickening is seen with pericholecystic fluid. No intra- or extrahepatic biliary ductal dilation. Pancreas: Peripancreatic stranding is seen without focal fluid collection. Spleen: Unremarkable. Adrenals: Unremarkable. Kidneys and ureters: Subcentimeter hypodensities are too small to characterize. Bladder: Unremarkable. Reproductive organs: Unremarkable. Bowel: Diverticulosis is seen without evidence of diverticulitis. The appendix is normal. Lymph nodes Retroperitoneal: Unremarkable. Pelvic: Unremarkable. Mesenteric: Unremarkable. Peritoneum: Normal. Vessels: Atherosclerotic calcifications are seen. Abdominal wall: Unremarkable. Bones: Degenerative changes in the visualized spine. IMPRESSION: Gallbladder wall thickening and pericholecystic edema concerning for acute cholecystitis. Peripancreatic stranding is seen without focal fluid collections, which may represent acute pancreatitis. ACT 112: Negative or not required by law. Electronically signed by: Esdras Díaz M.D. 03/24/2022 8:53 AM Gallbladder Ultrasound 03/24/22 23:03 ULTRASOUND RIGHT UPPER QUADRANT ABDOMEN CLINICAL HISTORY: Elevated hepatic transaminases. COMPARISON STUDY: Abdominal CT dated 03/23/2022. TECHNIQUE: Real-time, grayscale, and color flow sonography of the right upper quadrant of the abdomen was performed. Images are reviewed in the transverse and longitudinal planes. FINDINGS: Liver: The liver is normal in size and echotexture. There is no intrahepatic b iliary ductal dilatation. The main portal vein is patent. Gallbladder: There are gallstones and biliary sludge. The gallbladder wall is thickened and appears edematous measuring up to 5 mm. There is pericolic cystic fluid/edema. A sonographic Sweet's sign is reportedly absent. The common bile duct measures up to 0.4 cm in diameter. Pancreas: The pancreatic body and tail appear mildly edematous. Right kidney: Survey images of the right kidney demonstrate normal size and echotexture. There is no hydronephrosis. A subcentimeter cyst is noted in the interpolar region. Ascites: None. IMPRESSION: 1. Cholelithiasis and biliary sludge within a thick-walled and edematous appearing gallbladder. The appearance is highly suspicious for acute cholecystitis. 2. The pancreatic body and tail appeared edematous. This likely corresponds to acute pancreatitis when correlated with today's abdominal CT scan. Consider precautionary sonographic follow-up in 3-4 months time to document resolution. 3. There is no intra or extrahepatic biliary ductal dilatation. ACT 112: Negative or not required by law. Electronically signed by: Jerson Ayala M.D. 03/24/2022 6:35 AM Cholangiogram,Operative 03/25/22 00:00 INTRAOPERATIVE RADIOGRAPH CLINICAL HISTORY: Intraoperative cholangiogram. Fluoroscopy time: 13 seconds. FINDINGS: A single spot fluoroscopic view of the right upper quadrant is correlated with abdominal CT dated 03/23/2022. Cholecystectomy clips are noted. There is smooth contrast opacification of the common bile duct. There is no intra or extrahepatic biliary ductal dilatation. No filling defects are seen to suggest choledocholithiasis. There is free passage of contrast into the duodenum. IMPRESSION: Intraoperative cholangiogram image as above. Electronically signed by: Jerson Ayala M.D. 03/25/2022 8:34 AM (1) Pancreatitis Acute pancreatitis complication: unspecified Chronicity: acute Pancreatitis type: unspecified pancreatitis type Qualified Code(s): K85.90 - Acute pancreatitis without necrosis or infection, unspecified
[2022-03-25] MEDS ORDERED: ACETAMINOPHEN 500 MG TAB PO PRN (14:31)
[2022-03-25] MEDS: ONDANSETRON INJ 2 MG/ML 2 ML VIAL IV PRN (15:14)
[2022-03-25] MEDS: ENOXAPARIN INJ 40 MG/0.4 ML SYR SQ SCH (20:40)
[2022-03-25] MEDS: lisinopril 10 MG TAB PO SCH (20:40)
[2022-03-26] MEDS: LEVOTHYROXINE SODIUM 125 MCG TABLET PO SCH (06:07)
[2022-03-26] MEDS: PIPERACILLIN/TAZOBACTAM 3.375 GM in DEXTROSE 5% 100 ML IV SCH ×3 (06:07→21:05)
[2022-03-26 06:14] LABS: Basophils # (auto) 0.04 K/uL (0-0.2); Basophils % (auto) 0.5 %; Eosinophils # (auto) 0.08 K/uL (0-0.50); Hemoglobin 12.1 g/dl (12.0-16.0); Immature Granulocytes # (auto) 0.02 K/uL (0.00-0.02); Immature Granulocytes % (auto) 0.2 %; Lymphocytes # (auto) 2.48 K/uL (1.2-3.4); Lymphocytes % (auto) 30.6 %; Mean Corpuscular Hemoglobin 32.2 pg (25.0-34.0); Mean Corpuscular Hgb Conc 34.6 g/dL (32.0-36.0); Mean Corpuscular Volume 93.1 fL (80.0-100.0); Mean Platelet Volume 10.1 fL (9.4-12.3); Monocytes # (auto) 0.63 K/uL (0.24-0.82); Monocytes % (auto) 7.8 %; Neutrophils # (auto) 4.85 K/uL (1.4-6.5); Neutrophils % (auto) 59.9 %; Platelet Count 181 K/uL (130-400); RDW Coefficient of Variation 12.3 % (11.5-14.5); RDW Standard Deviation 42.4 fL (36.4-46.3); Red Blood Count 3.76 M/uL (3.93-5.22)
[2022-03-26 06:36] LABS: Albumin Globulin Ratio 1.4 (0.9-2); Albumin Level 3.4 gm/dl (3.4-5.0); Bilirubin,Total 0.7 mg/dl (0.2-1.0); Calcium 8.8 mg/dl (8.5-10.1); Creatinine Clr Calc Pharmacy 54.7 ml/min; Est GFR (African American) 90.8 ml/min; Est GFR (Non-African American) 78.3 ml/min; Globulin 2.5 gm/dl (2.5-4.0); Potassium 3.2 mmol/L (3.5-5.1); Total Protein 5.9 gm/dl (6.0-8.3)
[2022-03-26] MEDS: CHOLECALCIFEROL 1,000 UNITS 25 MCG TAB PO SCH (08:50)
[2022-03-26] MEDS: PANTOprazole 40 MG TAB PO SCH (08:50)
[2022-03-26] MEDS: ASPIRIN 81 MG ECTAB PO SCH (08:50)
[2022-03-26] MEDS: CEROVITE ADV FORMULA TAB PO SCH (08:50)
[2022-03-26] MEDS: hydroCHLOROthiazide 25 MG TAB PO SCH (08:51)
[2022-03-26] MEDS: MONTELUKAST SODIUM 10 MG TABLET PO SCH (08:51)
[2022-03-26] MEDS ORDERED: MAGNESIUM HYDROXIDE SUSP 30 ML UDC PO ONE (09:31)
--- NOTE | 2022-03-26 12:01 | Hospitalist Progress Note ---
Date of Service March 26, 2022 Assessment & Plan (1) Acute calculous cholecystitis: (2) Pancreatitis: (3) Elevated liver enzymes: Plan: Patient is a 81-year-old female who presented with abdominal pain, nausea and vomiting. CT abdomen and pelvis shows cholelithiasis and findings consistent with pancreatitis Lipase 9800 LFTs downtrending Liver ultrasound shows acute cholecystitis s/p laparoscopic cholecystectomy on 03/25. Intraoperative cholangiogram did not show any filling defects. Plan; Diet as per surgery; advance as tolerated. Continue pain control with tylenol, Dilaudid Continue on IV Zosyn. will change to cipro plus flagyl on discharge for total of 7 days. Plan Chronic conditions: History of hypertension: Hold hydrochlorothiazide. Continue lisinopril. Will monitor the blood pressure. History of prediabetes: Follow HbA1c levels. History of hypothyroidism: Continue Synthroid. History of asthma: Continue her home medication. Currently stable. Hyperlipidemia: Holding the Statin as liver functions are elevated. Deep venous thrombosis prophylaxis: resume heparin from tomorrow. Admission and Anticipated Discharge Date Admission Date: March 23, 2022 Subjective Patient is comfortable; not in any distress. Pain is well controlled on current regimen. Passing gas; no bowel movement yet. Review of Systems Review of Systems: All systems reviewed & are unremarkable except as noted in Subjective Physical Exam Physical Exam: Constitutional: WD/WN, vitals as above, NAD, sitting up in bed, pleasant, conversing easily Respiratory: normal respiratory effort, lungs clear to auscultation, no wheeze, rales, rhonchi. Normal insp/exp effort, no accessory muscle use Cardiovascular: RRR, no murmur, no edema Vessels: no JVD or carotid bruit Chest: normal inspection of chest Abdomen: Dressing intact; no soakage. Musculoskeletal: no cyanosis or clubbing, extremities motor strength 5/5 Skin: no rashes, warm and dry normal turgor Neurologic: PERRL, EOMI, accommodation nl, no face palsy, no dysarthria CN's II- XI intact bilaterally and moves all extremities Psychiatric: A+Ox3, euthymic affect Lymphatic: no cervical or axillary lymphadenopathy : deferred Results & Data Results & Data ([facility]) Vital Signs (Past 12 Hours) Vital Signs Temp Pulse Resp BP Pulse Ox O2 Del Method 03/26/22 08:49 169/77 H 03/26/22 07:39 36.9 C 66 16 163/79 H 94 Room Air 03/26/22 02:56 37 C 65 16 170/83 H 94 Room Air Laboratory Results Laboratory Results WBC 8.10 K/ul (4.8-10.8) 03/26/22 05:55 RBC 3.76 M/uL (3.93-5.22) L 03/26/22 05:55 Hgb 12.1 g/dl (12.0-16.0) 03/26/22 05:55 Hct 35.0 % (34.1-44.9) 03/26/22 05:55 MCV 93.1 fL (80.0-100.0) 03/26/22 05:55 MCH 32.2 pg (25.0-34.0) 03/26/22 05:55 MCHC 34.6 g/dL (32.0-36.0) 03/26/22 05:55 RDW Std Deviation 42.4 fL (36.4-46.3) 03/26/22 05:55 RDW Coeff of Mio 12.3 % (11.5-14.5) 03/26/22 05:55 Plt Count 181 K/uL (130-400) 03/26/22 05:55 MPV 10.1 fL (9.4-12.3) 03/26/22 05:55 Immature Gran % (Auto) 0.2 % 03/26/22 05:55 Neut % (Auto) 59.9 % 03/26/22 05:55 Lymph % (Auto) 30.6 % 03/26/22 05:55 [place] % (Auto) 7.8 % 03/26/22 05:55 Eos % (Auto) 1.0 % 03/26/22 05:55 Baso % (Auto) 0.5 % 03/26/22 05:55 Neut # (Auto) 4.85 K/uL (1.4-6.5) 03/26/22 05:55 Lymph # (Auto) 2.48 K/uL (1.2-3.4) 03/26/22 05:55 [place] # (Auto) 0.63 K/uL (0.24-0.82) 03/26/22 05:55 Eos # (Auto) 0.08 K/uL (0-0.50) 03/26/22 05:55 Baso # (Auto) 0.04 K/uL (0-0.2) 03/26/22 05:55 Immature Gran # (Auto) 0.02 K/uL (0.00-0.02) 03/26/22 05:55 Sodium 138 mmol/L (136-145) 03/26/22 05:55 Potassium 3.2 mmol/L (3.5-5.1) L 03/26/22 05:55 Chloride 105 mmol/L (98-107) 03/26/22 05:55 Carbon Dioxide 27 mmol/L (21-32) 03/26/22 05:55 Anion Gap 6 (3-11) 03/26/22 05:55 BUN 8 mg/dl (6-23) 03/26/22 05:55 Creatinine 0.73 mg/dl (0.6-1.2) 03/26/22 05:55 Est Cr Clr Drug Dosing 54.7 ml/min 03/26/22 05:55 Est GFR ( Amer) 90.8 ml/min 03/26/22 05:55 Est GFR (Non-Af Amer) 78.3 ml/min 03/26/22 05:55 BUN/Creatinine Ratio 11.0 (10-20) 03/26/22 05:55 Glucose 99 mg/dl (70-99(Fasting)) 03/26/22 05:55 Calcium 8.8 mg/dl (8.5-10.1) 03/26/22 05:55 Magnesium 2.0 mg/dl (1.7-2.4) 03/24/22 05:52 Total Bilirubin 0.7 mg/dl (0.2-1.0) 03/26/22 05:55 Direct Bilirubin 0.2 mg/dl (0-0.2) 03/24/22 05:52 AST 69 U/L (13-39) H 03/26/22 05:55 ALT 185 U/L (7-52) H 03/26/22 05:55 Alkaline Phosphatase 120 U/L (34-104) H 03/26/22 05:55 Troponin I High Sens 8.5 pg/ml (0-14) 03/23/22 18:57 Total Protein 5.9 gm/dl (6.0-8.3) L 03/26/22 05:55 Albumin 3.4 gm/dl (3.4-5.0) 03/26/22 05:55 Globulin 2.5 gm/dl (2.5-4.0) 03/26/22 05:55 Albumin/Globulin Ratio 1.4 (0.9-2) 03/26/22 05:55 Lipase 805 U/L (11-82) H 03/24/22 05:52 Hepatitis A IgM Ab NON-REACTIVE (NON-REACTIVE) 03/24/22 05:52 Hep Bs Antigen NON-REACTIVE (NON-REACTIVE) 03/24/22 05:52 Hep Bs Ag Confirmation TNP 03/24/22 05:52 Hep B Core IgM Ab NON-REACTIVE (NON-REACTIVE) 03/24/22 05:52 Hepatitis C Ab (EIA) NON-REACTIVE (NON-REACTIVE) 03/24/22 05:52 Hep C Ab Signal/Cutoff <0.02 (<1.00) 03/24/22 05:52 SARS-CoV-2, RNA, NAAT NEGATIVE (NEGATIVE) 03/23/22 Unknown Impressions Abdomen/Pelvis CT 03/23/22 20:08 CT abd pelvis IV con only CLINICAL HISTORY: pancreatitis TECHNIQUE: Helical axial images of the abdomen and pelvis were obtained and displayed. Automated dose lowering techniques and/or adjustment according to patient size were utilized for this exam. This exam was performed with intravenous contrast. CT DOSE: 322.35 mGy.cm COMPARISON: Comparison is made to gallbladder ultrasound 03/24/2022 FINDINGS: Lower chest: Bibasilar atelectasis versus scarring is seen. Liver: Unremarkable. No focal lesions are seen. Gallbladder and biliary tree: The gallbladder wall thickening is seen with pericholecystic fluid. No intra- or extrahepatic biliary ductal dilation. Pancreas: Peripancreatic stranding is seen without focal fluid collection. Spleen: Unremarkable. Adrenals: Unremarkable. Kidneys and ureters: Subcentimeter hypodensities are too small to characterize. Bladder: Unremarkable. Reproductive organs: Unremarkable. Bowel: Diverticulosis is seen without evidence of diverticulitis. The appendix is normal. Lymph nodes Retroperitoneal: Unremarkable. Pelvic: Unremarkable. Mesenteric: Unremarkable. Peritoneum: Normal. Vessels: Atherosclerotic calcifications are seen. Abdominal wall: Unremarkable. Bones: Degenerative changes in the visualized spine. IMPRESSION: Gallbladder wall thickening and pericholecystic edema concerning for acute cholecystitis. Peripancreatic stranding is seen without focal fluid collections, which may represent acute pancreatitis. ACT 112: Negative or not required by law. Electronically signed by: Esdras Díaz M.D. 03/24/2022 8:53 AM Gallbladder Ultrasound 03/24/22 23:03 ULTRASOUND RIGHT UPPER QUADRANT ABDOMEN CLINICAL HISTORY: Elevated hepatic transaminases. COMPARISON STUDY: Abdominal CT dated 03/23/2022. TECHNIQUE: Real-time, grayscale, and color flow sonography of the right upper quadrant of the abdomen was performed. Images are reviewed in the transverse and longitudinal planes. FINDINGS: Liver: The liver is normal in size and echotexture. There is no intrahepatic biliary ductal dilatation. The main portal vein is patent. Gallbladder: There are gallstones and biliary sludge. The gallbladder wall is thickened and appears edematous measuring up to 5 mm. There is pericolic cystic fluid/edema. A sonographic Sweet's sign is reportedly absent. The common bile duct measures up to 0.4 cm in diameter. Pancreas: The pancreatic body and tail appear mildly edematous. Right kidney: Survey images of the right kidney demonstrate normal size and echotexture. There is no hydronephrosis. A subcentimeter cyst is noted in the interpolar region. Ascites: None. IMPRESSION: 1. Cholelithiasis and biliary sludge within a thick-walled and edematous appearing gallbladder. The appearance is highly suspicious for acute cholecystit is. 2. The pancreatic body and tail appeared edematous. This likely corresponds to acute pancreatitis when correlated with today's abdominal CT scan. Consider precautionary sonographic follow-up in 3-4 months time to document resolution. 3. There is no intra or extrahepatic biliary ductal dilatation. ACT 112: Negative or not required by law. Electronically signed by: Jerson Ayala M.D. 03/24/2022 6:35 AM Cholangiogram,Operative 03/25/22 00:00 INTRAOPERATIVE RADIOGRAPH CLINICAL HISTORY: Intraoperative cholangiogram. Fluoroscopy time: 13 seconds. FINDINGS: A single spot fluoroscopic view of the right upper quadrant is correlated with abdominal CT dated 03/23/2022. Cholecystectomy clips are noted. There is smooth contrast opacification of the common bile duct. There is no intra or extrahepatic biliary ductal dilatation. No filling defects are seen to suggest choledocholithiasis. There is free passage of contrast into the duodenum. IMPRESSION: Intraoperative cholangiogram image as above. Electronically signed by: Jerson Ayala M.D. 03/25/2022 8:34 AM (1) Pancreatitis Acute pancreatitis complication: unspecified Chronicity: acute Pancreatitis type: unspecified pancreatitis type Qualified Code(s): K85.90 - Acute pancreatitis without necrosis or infection, unspecified
--- NOTE | 2022-03-26 13:05 | Surgery Progress Note ---
Date of Service March 26, 2022 Assessment & Plan (1) Acute calculous cholecystitis: Plan: good progress IV bax one more day home in AM if OK with Medical team Present on Admission?: Yes Admission and Anticipated Discharge Date Admission Date: March 23, 2022 Subjective feels good eating pain controlled Review of Systems Constitutional: no fever and no chills Respiratory: no dyspnea Cardiovascular: no chest pain Gastrointestinal: + abdominal pain; no nausea and no vomiting Genitourinary: no dysuria Physical Exam Constitutional: WD/WN, vitals as above Eyes: PERRL, conjunctivae normal, anicteric sclerae Gastrointestinal (Abdomen): Inspection/Auscultation: abdomen normal to inspection, + abdomen distended and normal bowel sounds Percussion/Palpation: + abdomen tender and abdomen soft; no guarding and abdomen not rigid Musculoskeletal: Head/Neck/Chest: normocephalic and head atraumatic Results & Data ([facility]) Vital Signs (Past 12 Hours) Vital Signs Temp Pulse Resp BP Pulse Ox O2 Del Method 03/26/22 08:49 169/77 H 03/26/22 07:39 36.9 C 66 16 163/79 H 94 Room Air 03/26/22 02:56 37 C 65 16 170/83 H 94 Room Air
[2022-03-26] MEDS: ENOXAPARIN INJ 40 MG/0.4 ML SYR SQ SCH (21:02)
[2022-03-26] MEDS: lisinopril 10 MG TAB PO SCH (21:02)
[2022-03-27] MEDS: LEVOTHYROXINE SODIUM 125 MCG TABLET PO SCH (05:45)
[2022-03-27] MEDS: PIPERACILLIN/TAZOBACTAM 3.375 GM in DEXTROSE 5% 100 ML IV SCH (05:47)
[2022-03-27 06:18] LABS: Basophils # (auto) 0.06 K/uL (0-0.2); Basophils % (auto) 0.7 %; Eosinophils # (auto) 0.25 K/uL (0-0.50); Hematocrit (blood only) 37.4 % (34.1-44.9); Hemoglobin 12.9 g/dl (12.0-16.0); Immature Granulocytes # (auto) 0.02 K/uL (0.00-0.02); Immature Granulocytes % (auto) 0.2 %; Lymphocytes # (auto) 2.61 K/uL (1.2-3.4); Lymphocytes % (auto) 31.8 %; Mean Corpuscular Hemoglobin 32.4 pg (25.0-34.0); Mean Corpuscular Hgb Conc 34.5 g/dL (32.0-36.0); Mean Platelet Volume 10.4 fL (9.4-12.3); Monocytes # (auto) 0.67 K/uL (0.24-0.82); Monocytes % (auto) 8.2 %; Neutrophils # (auto) 4.61 K/uL (1.4-6.5); Neutrophils % (auto) 56.1 %; Platelet Count 201 K/uL (130-400); RDW Coefficient of Variation 12.2 % (11.5-14.5); RDW Standard Deviation 42.7 fL (36.4-46.3); Red Blood Count 3.98 M/uL (3.93-5.22); White Blood Count 8.22 K/ul (4.8-10.8)
[2022-03-27 06:36] LABS: Albumin Globulin Ratio 1.4 (0.9-2); Albumin Level 3.7 gm/dl (3.4-5.0); BUN Creatinine Ratio 12.9 (10-20); Bilirubin,Total 0.9 mg/dl (0.2-1.0); Calcium 8.5 mg/dl (8.5-10.1); Est GFR (African American) 75.5 ml/min; Est GFR (Non-African American) 65.2 ml/min; Globulin 2.6 gm/dl (2.5-4.0); Potassium 3.4 mmol/L (3.5-5.1); Total Protein 6.3 gm/dl (6.0-8.3)
[2022-03-27] MEDS ORDERED: POTASSIUM CHLORIDE 20 MEQ/15 ML UDC PO STA (06:52)
[2022-03-27] MEDS: CEROVITE ADV FORMULA TAB PO SCH (08:49)
[2022-03-27] MEDS: MONTELUKAST SODIUM 10 MG TABLET PO SCH (08:49)
[2022-03-27] MEDS: hydroCHLOROthiazide 25 MG TAB PO SCH (08:49)
[2022-03-27] MEDS: PANTOprazole 40 MG TAB PO SCH (08:49)
[2022-03-27] MEDS: CHOLECALCIFEROL 1,000 UNITS 25 MCG TAB PO SCH (08:50)
[2022-03-27] MEDS: ASPIRIN 81 MG ECTAB PO SCH (08:51)
--- NOTE | 2022-03-27 09:19 | Surgery Progress Note ---
Date of Service March 27, 2022 Assessment & Plan (1) Acute calculous cholecystitis: Plan: POD # 2 lap milton with IOC -avss - postop pain minimal and controlled - nomal t. bili, lfts and alk phos trending down Plan: Okay from surgical standpoint for discharge discharge instructions reviewed follow-up in two weeks in surgery office Discussed with Dr. Ayala who agrees with above. Admission and Anticipated Discharge Date Admission Date: March 23, 2022 Subjective feeling good minimal pain, only took Oxycodone once no n,v tolerating diet passing flatus and had bowel movement ready to go home Physical Exam Constitutional: WD/WN, vitals as above no acute distress and not ill appearing Respiratory: normal respiratory effort; no respiratory distress Gastrointestinal (Abdomen): Inspection/Auscultation: abdomen normal to inspection and + abdominal surgical incision (clean, dry, intact dressings); abdomen not distended Percussion/Palpation: + abdomen tender (minimal at incision sites) and abdomen soft; no guarding and abdomen not rigid Skin: no rashes, warm and dry Psychiatric: A+Ox3, euthymic affect Results & Data ([facility]) Vital Signs (Past 12 Hours) Vital Signs Temp Pulse Pulse Resp BP Pulse Ox O2 Del Method 03/27/22 08:59 36.7 C 68 18 154/78 H 93 Room Air 03/27/22 08:32 36.8 C 67 18 165/76 H 67 L Room Air 03/27/22 08:03 37.2 C 65 17 152/80 H 94 Room Air 03/26/22 22:25 37.3 C 74 16 161/82 H 95 Room Air Laboratory Results 03/27/22 03/27/22 Range/Units 05:35 05:35 WBC 8.22 (4.8-10.8) K/ul RBC 3.98 (3.93-5.22) M/uL Hgb 12.9 (12.0-16.0) g/dl Hct 37.4 (34.1-44.9) % MCV 94.0 (80.0-100.0) fL MCH 32.4 (25.0-34.0) pg MCHC 34.5 (32.0-36.0) g/dL RDW Std Deviation 42.7 (36.4-46.3) fL RDW Coeff of Mio 12.2 (11.5-14.5) % Plt Count 201 (130-400) K/uL MPV 10.4 (9.4-12.3) fL Immature Gran % (Auto) 0.2 % Neut % (Auto) 56.1 % Lymph % (Auto) 31.8 % [place] % (Auto) 8.2 % Eos % (Auto) 3.0 % Baso % (Auto) 0.7 % Neut # (Auto) 4.61 (1.4-6.5) K/uL Lymph # (Auto) 2.61 (1.2-3.4) K/uL [place] # (Auto) 0.67 (0.24-0.82) K/uL Eos # (Auto) 0.25 (0-0.50) K/uL Baso # (Auto) 0.06 (0-0.2) K/uL Immature Gran # (Auto) 0.02 (0.00-0.02) K/uL Sodium 138 (136-145) mmol/L Potassium 3.4 L (3.5-5.1) mmol/L Chloride 104 (98-107) mmol/L Carbon Dioxide 26 (21-32) mmol/L Anion Gap 8 (3-11) BUN 11 (6-23) mg/dl Creatinine 0.85 (0.6-1.2) mg/dl Est Cr Clr Drug Dosing 47.0 ml/min Est GFR ( Amer) 75.5 ml/min Est GFR (Non-Af Amer) 65.2 ml/min BUN/Creatinine Ratio 12.9 (10-20) Glucose 94 (70-99(Fasting)) mg/dl Calcium 8.5 (8.5-10.1) mg/dl Total Bilirubin 0.9 (0.2-1.0) mg/dl AST 42 H (13-39) U/L ALT 145 H (7-52) U/L Alkaline Phosphatase 119 H (34-104) U/L Total Protein 6.3 (6.0-8.3) gm/dl Albumin 3.7 (3.4-5.0) gm/dl Globulin 2.6 (2.5-4.0) gm/dl Albumin/Globulin Ratio 1.4 (0.9-2)
--- NOTE | 2022-03-27 15:34 | Discharge Summary ---
Date of Service March 27, 2022 Admission HPI Per Admitting Provider A 81-year-old female with past medical history significant for hypothyroidism, prediabetes, intermittent asthma, mixed rhinitis, osteoporosis, migraine, who presents with nausea, vomiting, abdominal pain and since last night she is having persistent nausea, vomiting, it is not getting better, and also abdominal discomfort, which prompted her to come to the ER. She had four bowel movements, first stool was somewhat constipated, but her last stool was normal. Denies any blood in stools. Normal bladder movements. Currently resting comfortably. After Zofran, nausea is better. Denies any chest pain, no shortness of breath. Occasionally, has cough, no fevers, no difficulty swallowing. No earache, no runny nose, no sore throat, has some headache, no neck pain, no back pain. Admission Exam Per Admitting Provider GENERAL: The patient is of moderate build, not in acute distress. VITAL SIGNS: Temperature 36.8, pulse 79, respiratory rate 20, blood pressure 113/77, oxygen 94% on room air. HEENT: Pupils equal, round, and reactive to light. Oral mucosa moist. NECK: No JVD, no neck masses. CARDIOVASCULAR: S1 and S2 heard. Regular rate and rhythm. No murmur, no gallop. RESPIRATORY SYSTEM: Normal AP diameter. No accessory muscle use. No wheezing, no crackles. ABDOMEN: Soft, bowel sounds sluggish. Mild discomfort. No guarding, no rigidity, no distention. CENTRAL NERVOUS SYSTEM: Cranial nerves II-XII grossly intact, nonfocal. EXTREMITIES: No edema, no erythema. Principal Diagnosis (1) Acute calculous cholecystitis: (2) Pancreatitis: Discharge Exam Constitutional: WD/WN, vitals as above, NAD, sitting up in bed, pleasant, conversing easily Respiratory: normal respiratory effort, lungs clear to auscultation, no wheeze, rales, rhonchi. Normal insp/exp effort, no accessory muscle use Cardiovascular: RRR, no murmur, no edema Vessels: no JVD or carotid bruit Chest: normal inspection of chest Abdomen: Dressing intact; no soakage. Musculoskeletal: no cyanosis or clubbing, extremities motor strength 5/5 Skin: no rashes, warm and dry normal turgor Neurologic: PERRL, EOMI, accommodation nl, no face palsy, no dysarthria CN's II- XI intact bilaterally and moves all extremities Psychiatric: A+Ox3, euthymic affect Lymphatic: no cervical or axillary lymphadenopathy : deferred Discharge Data Allergies Allergy/AdvReac Type Severity Reaction Status Date / Time adhesive Allergy Intermediate RASH Verified 03/23/22 19:35 alendronate sodium AdvReac Intermediate UPSET Verified 03/23/22 19:35 STOMACH AND JAW PAIN Consultations 03/23/22 20:08 ED Decision to Admit Stat 03/24/22 07:21 Consult General Surgery Routine 03/24/22 08:00 Consult Gastroenterology Routine Procedures Performed Operation Date: 03/25/22 07:30 Actual Procedures p Laparoscopic Cholecystectomy with Cholangiogram(Not Applicable) - Luis Alston MD Ordered Studies 03/23/22 20:08 CT abd pelvis IV con only Urgent 03/24/22 23:03 US gallbladder Urgent 03/25/22 [place] cholangiogram OR Routine Hospital Course (1) Acute calculous cholecystitis: (2) Pancreatitis: (3) Elevated liver enzymes: Patient is a 81-year-old female who presented with abdominal pain, nausea and vomiting. CT abdomen and pelvis shows cholelithiasis and findings consistent with pancreatitis. Her LFTs were elevated. Lipase was 8900 on admission Liver ultrasound shows acute cholecystitis. She was started on IV fluids and IV antibiotic along with pain control, antiemetics. She underwent laparoscopic cholecystectomy on 03/25. Intraoperative cholangiogram did not show any filling defects. Her postoperative period was uneventful. She did not have any fever, chills, chest pain, shortness of breath or abdominal pain. She had normal bowel and bladder movement. She was given ciprofloxacin and Flagyl to complete 7-day course of antibiotic. Follow-up appointment with her primary care doctor and surgery was set up. Plan Total Time Total Time Spent Total Time Spent (In Minutes): 40 Total Time Includes: Examination of the Patient, Discharge Planning, Medication Reconciliation, Communication With Other Providers and Other Discharge Plan Discharge Items Patient Disposition: Home - Self-Care Reason For Visit: VOMITING, PANCREATITIS Discharge Diagnosis: Acute Cholecystitis Acute Pancreatitis Activity: Resume your previous activity Non-emergency contact: Primary Care Provider Call non-emergency contact if: you have any medication questions and your symptoms worsen Follow-up/Referrals: Luis Alston MD [Physician] - 04/10/22 12:45 pm Trinity Pastrana MD [Primary Care Provider] - (Date & Time 03/30/2022 2:20 PM Provider Trinity Pastrana MD Department General Internal Medicine [facility] ) Diet: Regular Addtl Attending Provider Instructions: You were admitted to the hospital due to infection/inflammation of your Gall bladder. Your Surgery to remove the gall bladder was on 03/25/2022. You were also treated with antibiotics for the infection. You are prescribed following antibiotics for 4 more days. 1) Ciprofloxacin 500mg twice daily 2) Metronidazole 500mg three times a day. You can take Tylenol as need for pain control. A follow up with PCP will be set up for sometime later this week. Please follow the Post-Surgical instructions Addtl Product Management Manager Provider Instructions: Post-Surgical ~Discharge Instructions Activity Recommendations: - lifting limitation: (20 pounds for 3-4 weeks), - exercise/sex/sports limit: (nonstrenuous for 2 weeks), - driving or machine use limit: (none for 1 week or until pain free), - Shower/bathe limit: (may shower ) Diet: - Resume previous diet SPECIAL CARE INSTRUCTIONS: - May shower. Let water run over area and pat dry. No submerging underwater for 2 weeks (no bathing, swimming, hot tubs) - Leave steri strips on for one week and then remove. - Call the surgeon's office with any questions or concerns - - (ex. temperature higher than 101 degrees F, excessive bleeding or pain). MEDICATIONS: - Resume previous medications unless instructed otherwise by your surgeon. - May take extra strength Tylenol and Ibuprofen as needed for mild to moderate pain -650 mg Tylenol every 6 hours as needed - Ibuprofen 600 mg every 6 hours as needed (take with food) FOLLOW UP VISIT: - If not already scheduled, please call the office to schedule a two week follow-up appointment. Office number Pending Studies at Discharge: Yes (gallbladder pathology, will be reviewed at postop visit) Stand-Alone Forms: My [facility] [employer], Smoking Cessation Medications and DC Order Prescriptions: New acetaminophen [Tylenol Extra Strength] 500 mg Tablet 500 mg PO Q4H PRN (Reason: pain) Qty: 30 0RF ciprofloxacin HCl [Cipro] 500 mg tablet 500 mg PO BID 4 Days Qty: 8 0RF metronidazole 500 mg tablet 500 mg PO Q8H 4 Days Qty: 12 0RF Continued aspirin 81 mg Tablet,Delayed Release (Dr/Ec) 81 mg PO DAILY simvastatin 40 mg tablet 40 mg PO HS biotin 10,000 mcg Capsule 10,000 mcg PO DAILY levothyroxine 125 mcg tablet 125 mcg PO QAM hydrochlorothiazide 12.5 mg capsule 12.5 mg PO QAM omeprazole 20 mg capsule,delayed release(DR/EC) 20 mg PO QAM montelukast 10 mg tablet 10 mg PO DAILY Mucinex DM 30-600 mg Tablet Extended Release 12 Hr 1 tab PO Q12H albuterol sulfate 90 mcg/actuation HFA aerosol inhaler 2 puff INHALATION DIRECTED PRN (Reason: Shortness Of Breath Or Wheezing) cholecalciferol (vitamin D3) [Vitamin D3] 25 mcg (1,000 unit) Capsule 25 mcg PO DAILY Metamucil (sugar) Powder 1 tsp PO DAILY [id number] 333-133-5 mg Tablet 1 tab PO DAILY m-vit,min 38-ccyl-iynmg acid 60 mg iron-1 mg Tablet 1 tab PO DAILY melatonin 10 mg Tablet 20 mg PO HS PRN (Reason: Sleep) [id number] 088-274-25-10 mg Tablet 1 tab PO BID lisinopril 10 mg tablet 10 mg PO HS Discharge Orders: Discharge Order (Routine); Ordered 03/27/22 Ordered By: Ady Ryan Admission Data Admit Date/Time: 03/23/22 21:41 Attending Provider: Ady Ryan Admit Provider: Kane Gonzales Primary Care Provider: Trinity Pastrana Other Providers: Kane Gonzales ; Luis Alston ; Karne Pate Other Interventions: Discharge Summary Assessment (RN) Last Done: 03/27/22 11:41
== END 2022-03-27 12:35 | disposition home or self-care (01) | DRG 417 ==
LOC: ED 17:57 → 3N 21:41